=== PATIENT | female | born 1980 | race Two or more races ===

== ENCOUNTER 2018-10-24 11:07 | Inpatient (IN) | payer OTHER ==
[2018-10-24 11:40] VITALS: BMI 24.3
--- NOTE | 2018-10-24 13:53 | HP ---
CIWA Score - Admission Criteria OASAS Guidelines: Admission for Medically Managed Detox: Requires at least one of the followin. CIWA greater than 12 2. Seizures within the past 24 hours 3. Delirium tremens within the past 24 hours 4. Hallucinations within the past 24 hours 5. Acute intervention needed for co occurring medical disorder 6. Acute intervention needed for co occurring psychiatric disorder 7. Severe withdrawal that cannot be handled at a lower level of care (continued vomiting, continued diarrhea, abnormal vital signs) requiring intravenous medication and/or fluids 8. Admission ROS S - HPI Chief Complaint: I am here for rehab from cocaine Allergies/Adverse Reactions: Allergies Allergy/AdvReac Type Severity Reaction Status Date / Time No Known Allergies Allergy Verified 10/24/18 12:17 History of Present Illness: this 38 years old female with cocaine dependence,alcohol abused,seeking rehab, never been in treatment before,mmtp 40 mgs/day,last medicated today nicotine dependence 1 pack/day, weight loss anemia no med major depression,ptsd,anxiety,non compliance,last medication 6 months ago varicose vein both legs Exam Limitations: No Limitations - Ebola screening Have you traveled outside of the country in the last 21 days: No Have you had contact with anyone from an Ebola affected area: No Have you been sick,other than usual withdrawal symptoms: No - Review of Systems Constitutional: No Symptoms Reported, Malaise, Changes in sleep, Unintentional Wgt. Loss EENT: reports: No Symptoms Reported Respiratory: reports: No Symptoms reported Cardiac: reports: No Symptoms Reported GI: reports: Nausea Musculoskeletal: reports: Muscle Pain Integumentary: reports: No Symptoms Reported Neuro: reports: No Symptoms reported Endocrine: reports: No Symptoms Reported Hematology: reports: Anemia Psychiatric: reports: No Sypmtoms Reported, Judgement Intact, Mood/Affect Appropiate, Orientated x3, Depressed, other (insomnia,anxiety,ptsd) Other Systems: Reviewed and Negative Patient History - Patient Medical History Hx Anemia: No Hx Asthma: No Hx Chronic Obstructive Pulmonary Disease (COPD): No Hx Cancer: No Hx Cardiac Disorders: No Hx Congestive Heart Failure: No Hx Hypertension: No Hx Hypercholesterolemia: No Hx Pacemaker: No HX Cerebrovascular Accident: No Hx Seizures: No Hx Dementia: No Hx Diabetes: No Hx Gastrointestinal Disorders: No Hx Liver Disease: No Hx Genitourinary Disorders: No Hx Sexually Transmitted Disorders: No Hx Renal Disease (ESRD): No Hx Thyroid Disease: No Hx Human Immunodeficiency Virus (HIV): No (last 05/01 negative) Hx Hepatitis C: No Hx Depression: Yes (anxiety,insomnia) Hx Suicide Attempt: Yes (overdose at age of 16) Hx Bipolar Disorder: No Hx Schizophrenia: No Other Medical History: no suicidal,no homicidal,varicose veins both legs - Patient Surgical History Past Surgical History: Yes Other Surgical History: 1 C- section 2006, fibroids removal 11/2017 - PPD History Previous Implant?: Yes Documented Results: Negative w/o proof Implanted On Prior [facility] Admission?: No PPD to be Administered?: Yes - Reproductive History Patient is a Female of Child Bearing Age (11 -55 yrs old): Yes Last Menstrual Period: 09/25/18 Patient : No - Smoking Cessation Smoking history: Current every day smoker Have you smoked in the past 12 months: Yes Aproximately how many cigarettes per day: 20 Hx Chewing Tobacco Use: No Initiated information on smoking cessation: Yes 'Breaking Loose' booklet given: 10/24/18 - Substance & Tx. History Hx Alcohol Use: Yes Hx Substance Use: Yes Substance Use Type: Alcohol, Cocaine Hx Substance Use Treatment: No - Substances Abused Cocaine Route: Smoking Frequency: Daily Amount used: $100-$200 Age of first use: 16 Date of Last Use: 10/24/18 Alcohol Route: Oral Frequency: 1-2 times per week Amount used: 2 of 24 ozs of beer Age of first use: 16 Date of Last Use: 10/24/18 Family Disease History - Family Disease History Family History: Denies Admission Physical Exam S - Vital Signs Vital Signs: Vital Signs - 24 hr 10/24/18 11:38 Temperature 98.8 F Pulse Rate 97 H Respiratory 18 Rate Blood Pressure 147/83 - Physical General Appearance: Yes: Within Normal Limits HEENTM: Yes: Normal ENT Inspection, SHUKRI, Pharynx Normal Respiratory: Yes: Within Normal Limits, Lungs Clear, Normal Breath Sounds Neck: Yes: Within Normal Limits, Supple, Trachea in good position Breast: Yes: Breast Exam Deferred Cardiology: Yes: Within Normal Limits, Regular Rhythm, Regular Rate, S1, S2 Abdominal: Yes: Within Normal Limits, Normal Bowel Sounds, Non Tender, Flat, Soft, Surgical Scar Genitourinary: Yes: Within Normal Limits Back: Yes: Within Normal Limits Musculoskeletal: Yes: Within Normal Limits Extremities: Yes: Within Normal Limits, Other (varicose veins both legs) 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, Alert, Motor Strength 5/5 Integumentary: Yes: Within Normal Limits Lymphatic: Yes: Within Normal Limits - Diagnostic (1) Cocaine dependence Current Visit: Yes Status: Acute (2) Alcohol abuse Current Visit: Yes Status: Acute (3) Nicotine dependence Current Visit: Yes Status: Acute (4) Weight loss Current Visit: Yes Status: Acute (5) Insomnia secondary to depression with anxiety Current Visit: Yes Status: Acute (6) PTSD (post-traumatic stress disorder) Current Visit: Yes Status: Acute (7) History of drug overdose Current Visit: Yes Status: Acute Cleared for Admission [facility] - Detox or Rehab Claeared for Rehab Admission: Yes [facility] Breath Alcohol Content Breath Alcohol Content: 0.004 Urine Pregancy Test - Result Urine Test Results: Negative - NO Line Present Urine Drug Screen - Results Urine Drug Screen Results: MISHA-Cocaine, MTD-Methadone Inpatient Rehab Admission - Rehab Decision to Admit Inpatient rehab admission?: Yes - Initial Determination Are CD services needed?: Yes Free of communicable disease: Yes Not in need of hospitalization: Yes - Rehab Admission Criteria Previous failed treatment: Yes Poor recovery environment: Yes Comorbidities: Yes Lacks judgement: No Patient is meeting Inpatient Rehab admission criteria:: Yes
[2018-10-24] MEDS ORDERED: MAGNESIUM HYDROX 2400MG/30ML ORAL SUSPENSION 30 ML CUP PO PRN (14:12)
[2018-10-24] MEDS ORDERED: guaiFENesin 200 MG/10 ML 10 ML UNIT-DOSE CUPS PO PRN (14:12)
[2018-10-24] MEDS ORDERED: LOPERAMIDE HCL 2 MG CAPSULE PO PRN (14:12)
[2018-10-24] MEDS ORDERED: MENTHOL/PHENOL 1 EACH UD MM PRN (14:12)
[2018-10-24] MEDS ORDERED: P-EPHED 60MG/TRIPROLIDI 2.5MG TABLET PO PRN (14:12)
[2018-10-24] MEDS ORDERED: ACETAMINOPHEN 325 MG TABLET (FP) PO PRN (14:12)
[2018-10-24] MEDS ORDERED: MAGNESIUM CITRATE 300 ML BOTTLE PO PRN (14:12)
[2018-10-24] MEDS ORDERED: MAG HYDROX/AL HYDROX/SIMETH 30 ML UNIT-DOSE CUP PO PRN (14:12)
[2018-10-24] MEDS: NICOTINE 21 MG/24 HOURS TOPICAL PATCH TD SCH (18:38)
[2018-10-24] MEDS ORDERED: PT OWN MED DRAWER 7, Y5N ONE (21:06)
[2018-10-24] MEDS: THIAMINE HCL 100 MG TABLET (FP) PO SCH (21:38)
[2018-10-24] MEDS: MELATONIN 5 MG TABLETS PO PRN (21:39)
[2018-10-24 23:50] LABS: URINE APPEARANCE CLEAR; URINE BILIRUBIN NEGATIVE (<2.0 mg/dL); URINE COLOR STRAW; URINE GLUCOSE (UA) NEGATIVE (NEGATIVE); URINE KETONE NEGATIVE (NEGATIVE); URINE LEUK ESTERASE NEGATIVE (NEGATIVE); URINE NITRITE NEGATIVE (NEGATIVE); URINE PROTEIN NEGATIVE (NEGATIVE); URINE UROBILINOGEN NEGATIVE mg/dL (0.2-1.0)
[2018-10-25] MEDS: METHADONE HCL 40 MG DISPERSABLE TABLET PO SCH (07:49)
[2018-10-25 10:19] LABS: HEMATOCRIT 32.9 % (32.4-45.2); HEMOGLOBIN 10.5 GM/dL (10.7-15.3); MCH 24.4 pg (25.7-33.7); MCHC 31.9 g/dl (32.0-36.0); MEAN CELL VOLUME 76.5 fl (80-96); MEAN PLT VOLUME 8.6 fl (7.5-11.1); PLATELET COUNT 319 K/MM3 (134-434); RDW 19.5 % (11.6-15.6); WHITE BLOOD COUNT 6.5 K/mm3 (4.0-10.0)
[2018-10-25] MEDS: NICOTINE 21 MG/24 HOURS TOPICAL PATCH TD SCH (10:26)
[2018-10-25] MEDS: PRENATAL VITAMINS W/ FOLIC ACID TABLET (FP) PO SCH (10:26)
[2018-10-25] MEDS: NICOTINE POLACRILEX 2 MG GUM BUC PRN (10:27)
[2018-10-25 10:35] LABS: ALBUMIN 3.3 g/dl (3.4-5.0); ALK PHOS 97 U/L (45-117); ANION GAP 5 MMOL/L (8-16); BILIRUBIN,TOTAL 0.3 mg/dL (0.2-1); BLOOD UREA NITROGEN 14 mg/dL (7-18); CALCIUM 8.4 mg/dL (8.5-10.1); CHLORIDE 104 mmol/L (98-107); CO2 28 mmol/L (21-32); GLUCOSE,RANDOM 87 mg/dL (74-106); POTASSIUM 4.3 mmol/L (3.5-5.1); SGOT/AST 15 U/L (15-37); SGPT/ALT 16 U/L (13-61); SODIUM 137 mmol/L (136-145); TOT PROT 7.4 g/dl (6.4-8.2)
[2018-10-25 10:56] LABS: SICKLE CELL SCREEN NEGATIVE (NEGATIVE)
--- NOTE | 2018-10-25 11:58 | PN ---
[facility] Progress Note (SOAP) Subjective: patient reported to nurse that she felt as though she was going to pass out. Client reported feeling this way 20 years ago at age 18, but no other episodes since then. Reports she has not eaten well in 2 days and fluid intake has been low. States that once she had 3 cups of water, she felt better. Was found sitting on bed and reports that she no longer feels as though she will pass out. Objective: 10/25/18 11:53 Vital Signs (72 hours) 10/24/18 10/24/18 10/25/18 11:38 15:33 00:30 Temperature 98.8 F 97.7 F Pulse Rate 97 H 82 Respiratory 18 18 18 Rate Blood Pressure 147/83 113/75 10/25/18 10/25/18 10/25/18 03:30 07:57 11:35 Temperature 98.6 F 97.8 F Pulse Rate 81 80 Respiratory 18 18 20 Rate Blood Pressure 149/82 139/87 10/25/18 11:54 Vital signs take at the time of complaint: 139/87, HR-80, RR-20, O2 saturation: 100%, Blood glucose 107 10/25/18 11:57 neurologically intact, PERRLA, strength equal bilaterally, A+O x 3. Assessment: vertigo 10/25/18 11:57 10/25/18 11:58 Plan: Advised client to change position slowly, increase hydration. Patient recovered. Advised to notify RN if any further incidence of dizziness, Continue to monitor.
[2018-10-25] MEDS ORDERED: TUBERCULIN PPD 5 TU/0.1ML VIAL ID ONE (19:23)
[2018-10-25] MEDS: MELATONIN 5 MG TABLETS PO PRN (21:30)
[2018-10-25] MEDS: THIAMINE HCL 100 MG TABLET (FP) PO SCH (21:30)
[2018-10-25] MEDS ORDERED: PT OWN MED DRAWER 7, Y5N ONE (22:33)
[2018-10-26] MEDS: METHADONE HCL 40 MG DISPERSABLE TABLET PO SCH (06:54)
[2018-10-26] MEDS: PRENATAL VITAMINS W/ FOLIC ACID TABLET (FP) PO SCH (10:03)
[2018-10-26] MEDS: NICOTINE 21 MG/24 HOURS TOPICAL PATCH TD SCH (10:04)
[2018-10-26] MEDS: NICOTINE POLACRILEX 2 MG GUM BUC PRN ×2 (10:05→21:18)
[2018-10-26] MEDS: MELATONIN 5 MG TABLETS PO PRN (21:17)
[2018-10-26] MEDS: THIAMINE HCL 100 MG TABLET (FP) PO SCH (21:17)
[2018-10-27] MEDS: METHADONE HCL 40 MG DISPERSABLE TABLET PO SCH (06:35)
[2018-10-27] MEDS: IBUPROFEN 400 MG TABLET (FP) PO PRN (06:36)
[2018-10-27] MEDS: PRENATAL VITAMINS W/ FOLIC ACID TABLET (FP) PO SCH (10:07)
[2018-10-27] MEDS: NICOTINE 21 MG/24 HOURS TOPICAL PATCH TD SCH (10:07)
[2018-10-27] MEDS: NICOTINE POLACRILEX 2 MG GUM BUC PRN ×2 (10:08→16:29)
[2018-10-27] MEDS: THIAMINE HCL 100 MG TABLET (FP) PO SCH (21:22)
[2018-10-27] MEDS: MELATONIN 5 MG TABLETS PO PRN (21:22)
[2018-10-28] MEDS: METHADONE HCL 40 MG DISPERSABLE TABLET PO SCH (06:42)
[2018-10-28] MEDS: PRENATAL VITAMINS W/ FOLIC ACID TABLET (FP) PO SCH (10:47)
[2018-10-28] MEDS: NICOTINE 21 MG/24 HOURS TOPICAL PATCH TD SCH (10:47)
[2018-10-28] MEDS: NICOTINE POLACRILEX 2 MG GUM BUC PRN ×2 (10:48→18:26)
[2018-10-28] MEDS: THIAMINE HCL 100 MG TABLET (FP) PO SCH (21:02)
[2018-10-28] MEDS: MELATONIN 5 MG TABLETS PO PRN (21:03)
[2018-10-29] MEDS: METHADONE HCL 40 MG DISPERSABLE TABLET PO SCH (06:47)
[2018-10-29] MEDS: NICOTINE 21 MG/24 HOURS TOPICAL PATCH TD SCH (10:01)
[2018-10-29] MEDS: PRENATAL VITAMINS W/ FOLIC ACID TABLET (FP) PO SCH (10:01)
[2018-10-29] MEDS: NICOTINE POLACRILEX 2 MG GUM BUC PRN (10:02)
[2018-10-29] MEDS: MELATONIN 5 MG TABLETS PO PRN (21:08)
[2018-10-29] MEDS: THIAMINE HCL 100 MG TABLET (FP) PO SCH (21:08)
[2018-10-30] MEDS: METHADONE HCL 40 MG DISPERSABLE TABLET PO SCH (06:27)
[2018-10-30] MEDS: PRENATAL VITAMINS W/ FOLIC ACID TABLET (FP) PO SCH (09:59)
[2018-10-30] MEDS: NICOTINE 21 MG/24 HOURS TOPICAL PATCH TD SCH (09:59)
[2018-10-30] MEDS: NICOTINE POLACRILEX 2 MG GUM BUC PRN (10:00)
[2018-10-30] MEDS: THIAMINE HCL 100 MG TABLET (FP) PO SCH (21:28)
[2018-10-30] MEDS: MELATONIN 5 MG TABLETS PO PRN (21:28)
[2018-10-31] MEDS: METHADONE HCL 40 MG DISPERSABLE TABLET PO SCH (06:49)
[2018-10-31] MEDS: NICOTINE 21 MG/24 HOURS TOPICAL PATCH TD SCH (09:46)
[2018-10-31] MEDS: PRENATAL VITAMINS W/ FOLIC ACID TABLET (FP) PO SCH (09:46)
[2018-10-31] MEDS: NICOTINE POLACRILEX 2 MG GUM BUC PRN (09:47)
[2018-10-31] MEDS: THIAMINE HCL 100 MG TABLET (FP) PO SCH (21:48)
[2018-10-31] MEDS: MELATONIN 5 MG TABLETS PO PRN (21:50)
[2018-11-01] MEDS: METHADONE HCL 40 MG DISPERSABLE TABLET PO SCH (06:20)
[2018-11-01] MEDS: hydrOXYzine PAMOATE 25 MG CAPSULE (FP) PO PRN ×2 (09:49→21:24)
[2018-11-01] MEDS: IBUPROFEN 400 MG TABLET (FP) PO PRN (09:49)
[2018-11-01] MEDS: PRENATAL VITAMINS W/ FOLIC ACID TABLET (FP) PO SCH (09:49)
[2018-11-01] MEDS: NICOTINE 21 MG/24 HOURS TOPICAL PATCH TD SCH (09:49)
[2018-11-01] MEDS: NICOTINE POLACRILEX 2 MG GUM BUC PRN (09:50)
[2018-11-01] MEDS: THIAMINE HCL 100 MG TABLET (FP) PO SCH (21:24)
[2018-11-01] MEDS: MELATONIN 5 MG TABLETS PO PRN (21:24)
[2018-11-02] MEDS: METHADONE HCL 40 MG DISPERSABLE TABLET PO SCH (06:35)
[2018-11-02] MEDS: NICOTINE POLACRILEX 2 MG GUM BUC PRN ×3 (06:35→21:34)
[2018-11-02] MEDS: PRENATAL VITAMINS W/ FOLIC ACID TABLET (FP) PO SCH (09:56)
[2018-11-02] MEDS: NICOTINE 21 MG/24 HOURS TOPICAL PATCH TD SCH (09:56)
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
[2018-11-02] MEDS: PARoxetine HCL 20 MG TABLET PO SCH (13:13)
[2018-11-02] MEDS: THIAMINE HCL 100 MG TABLET (FP) PO SCH (21:32)
[2018-11-02] MEDS: hydrOXYzine PAMOATE 25 MG CAPSULE (FP) PO PRN (21:32)
[2018-11-02] MEDS: traZODone HCL 100 MG TABLET (FP) PO SCH (21:33)
[2018-11-03] MEDS: METHADONE HCL 40 MG DISPERSABLE TABLET PO SCH (07:00)
[2018-11-03] MEDS: NICOTINE 21 MG/24 HOURS TOPICAL PATCH TD SCH (10:16)
[2018-11-03] MEDS: PRENATAL VITAMINS W/ FOLIC ACID TABLET (FP) PO SCH (10:16)
[2018-11-03] MEDS: PARoxetine HCL 20 MG TABLET PO SCH (10:16)
[2018-11-03] MEDS: MELATONIN 5 MG TABLETS PO PRN (21:11)
[2018-11-03] MEDS: THIAMINE HCL 100 MG TABLET (FP) PO SCH (21:11)
[2018-11-03] MEDS: traZODone HCL 100 MG TABLET (FP) PO SCH (21:11)
[2018-11-04] MEDS ORDERED: PT OWN MED DRAWER 7, Y5N ONE (03:18)
[2018-11-04] MEDS: METHADONE HCL 40 MG DISPERSABLE TABLET PO SCH (06:25)
[2018-11-04] MEDS: NICOTINE 21 MG/24 HOURS TOPICAL PATCH TD SCH (10:00)
[2018-11-04] MEDS: PARoxetine HCL 20 MG TABLET PO SCH (10:00)
[2018-11-04] MEDS: PRENATAL VITAMINS W/ FOLIC ACID TABLET (FP) PO SCH (10:00)
[2018-11-04] MEDS: NICOTINE POLACRILEX 2 MG GUM BUC PRN ×3 (10:01→21:29)
[2018-11-04] MEDS: THIAMINE HCL 100 MG TABLET (FP) PO SCH (21:29)
[2018-11-04] MEDS: MELATONIN 5 MG TABLETS PO PRN (21:29)
[2018-11-04] MEDS: traZODone HCL 100 MG TABLET (FP) PO SCH (21:45)
[2018-11-05] MEDS: METHADONE HCL 40 MG DISPERSABLE TABLET PO SCH (06:42)
[2018-11-05] MEDS: NICOTINE POLACRILEX 2 MG GUM BUC PRN ×3 (06:43→21:07)
[2018-11-05] MEDS: NICOTINE 21 MG/24 HOURS TOPICAL PATCH TD SCH (09:43)
[2018-11-05] MEDS: PRENATAL VITAMINS W/ FOLIC ACID TABLET (FP) PO SCH (09:43)
[2018-11-05] MEDS: PARoxetine HCL 20 MG TABLET PO SCH (09:43)
[2018-11-05] MEDS: THIAMINE HCL 100 MG TABLET (FP) PO SCH (21:07)
[2018-11-05] MEDS: traZODone HCL 100 MG TABLET (FP) PO SCH (21:07)
[2018-11-05] MEDS: MELATONIN 5 MG TABLETS PO PRN (21:07)
[2018-11-06] MEDS: METHADONE HCL 40 MG DISPERSABLE TABLET PO SCH (06:36)
[2018-11-06] MEDS: NICOTINE POLACRILEX 2 MG GUM BUC PRN ×2 (06:38→10:04)
[2018-11-06] MEDS: NICOTINE 21 MG/24 HOURS TOPICAL PATCH TD SCH (10:03)
[2018-11-06] MEDS: PARoxetine HCL 20 MG TABLET PO SCH (10:04)
[2018-11-06] MEDS: PRENATAL VITAMINS W/ FOLIC ACID TABLET (FP) PO SCH (10:04)
--- NOTE | 2018-11-06 17:05 | PN ---
[facility] Progress Note Note: Patient is scheduled for discharged tomorrow. Scripts for 30 days supply of medications(Paxil, Trazadone) will be electronically transferred to [facility] at [address] [place] [address] [phone]
[2018-11-06] MEDS: THIAMINE HCL 100 MG TABLET (FP) PO SCH (21:25)
[2018-11-06] MEDS: traZODone HCL 100 MG TABLET (FP) PO SCH (21:26)
[2018-11-06] MEDS: MELATONIN 5 MG TABLETS PO PRN (21:26)
[2018-11-07] MEDS: METHADONE HCL 40 MG DISPERSABLE TABLET PO SCH (06:38)
[2018-11-07] MEDS: IBUPROFEN 400 MG TABLET (FP) PO PRN (06:39)
[2018-11-07] MEDS: NICOTINE POLACRILEX 2 MG GUM BUC PRN ×2 (06:40→09:34)
[2018-11-07 07:07] VITALS: BP 125/84; PULSE 73; TEMP 97.8
[2018-11-07] MEDS: NICOTINE 21 MG/24 HOURS TOPICAL PATCH TD SCH (09:34)
[2018-11-07] MEDS: PRENATAL VITAMINS W/ FOLIC ACID TABLET (FP) PO SCH (09:34)
[2018-11-07] MEDS: PARoxetine HCL 20 MG TABLET PO SCH (09:34)
--- NOTE | 2018-11-07 09:34 | PN ---
[facility] Progress Note Note: PT COMPLETED REHAB AND DISCHARGED TODAY. PT MET WITH HER COUNSELOR AND HAS BEEN REFERRED TO AFTERCARE AT [facility] ON [address] [place] [address] WELL TO [facility] ON [address] [place], [place]. Home Medications Medication Instructions Recorded Paroxetine HCl [Paxil -] 20 mg PO DAILY #30 tablet 11/06/18 traZODone HCL [Desyrel -] 100 mg PO HS #30 tablet 11/06/18 Vital Signs (72 hours) 11/05/18 11/05/18 11/05/18 00:30 03:30 07:00 Temperature 97.8 F Pulse Rate 82 Respiratory 18 18 18 Rate Blood Pressure 118/74 11/06/18 11/06/18 11/06/18 00:30 03:30 07:11 Temperature 97.2 F L Pulse Rate 76 Respiratory 17 18 18 Rate Blood Pressure 109/75 11/07/18 11/07/18 11/07/18 00:30 03:30 07:07 Temperature 97.8 F Pulse Rate 73 Respiratory 18 18 18 Rate Blood Pressure 125/84 Laboratory Tests 10/24/18 10/25/18 10/25/18 23:17 06:00 06:00 WBC 6.5 RBC 4.30 Hgb 10.5 L Hct 32.9 MCV 76.5 L MCH 24.4 L MCHC 31.9 L RDW 19.5 H Plt Count 319 MPV 8.6 Sickle Cell Screen Negative Sodium Potassium Chloride Carbon Dioxide Anion Gap BUN Creatinine Creat Clearance w eGFR POC Glucometer Random Glucose Calcium Total Bilirubin AST ALT Alkaline Phosphatase Total Protein Albumin Urine Color Straw Urine Appearance Clear Urine pH 6.0 Ur Specific [place] 1.008 L Urine Protein Negative Urine Glucose (UA) Negative Urine Ketones Negative Urine Blood Negative Urine Nitrite Negative Urine Bilirubin Negative Urine Urobilinogen Negative Ur Leukocyte Esterase Negative RPR Titer HIV 1&2 Antibody Screen Negative HIV P24 Antigen Negative 10/25/18 10/25/18 10/25/18 06:00 06:00 11:34 WBC RBC Hgb Hct MCV MCH MCHC RDW Plt Count MPV Sickle Cell Screen Sodium 137 Potassium 4.3 Chloride 104 Carbon Dioxide 28 Anion Gap 5 L BUN 14 Creatinine 1.0 Creat Clearance w eGFR > 60 POC Glucometer 107 Random Glucose 87 Calcium 8.4 L Total Bilirubin 0.3 AST 15 ALT 16 Alkaline Phosphatase 97 Total Protein 7.4 Albumin 3.3 L Urine Color Urine Appearance Urine pH Ur Specific [place] Urine Protein Urine Glucose (UA) Urine Ketones Urine Blood Urine Nitrite Urine Bilirubin Urine Urobilinogen Ur Leukocyte Esterase RPR Titer Nonreactive HIV 1&2 Antibody Screen HIV P24 Antigen NAD MEDICALLY STABLE PLAN:D/C PT TODAY FOLLOW UP WITH CD AFTERCARE RECOMMENDATION/ MEDICAL MANAGEMENT INDICATED ABOVE. Current Active Problems Alcohol abuse (Acute) Anemia (Acute) Cocaine dependence (Acute) History of drug overdose (Acute) Insomnia secondary to depression with anxiety (Acute) Substance-induced anxiety disorder (Acute) Substance-induced sleep disorder (Acute) Weight loss (Acute) MDD (major depressive disorder) (Chronic) Nicotine dependence (Chronic) PTSD (post-traumatic stress disorder) (Chronic) Varicose vein of leg (Chronic)
== END 2018-11-07 10:00 | disposition home or self-care (01) | DRG 772 ==
LOC: YASAS 11:07 → Y3E 12:31
PROVIDERS: ADMIT Neuromusculoskeletal Medicine & OMM; ATTEND Neuromusculoskeletal Medicine & OMM
PROC: HZ42ZZZ Group Counseling for Substance Abuse Treatment, Cognitive-Behavioral (ICD-10-PCS; principal; 2018-10-24)
DX: F14.20 Cocaine dependence, uncomplicated (principal); F10.10 Alcohol abuse, uncomplicated; F17.210 Nicotine dependence, cigarettes, uncomplicated; F43.10 Post-traumatic stress disorder, unspecified; F32.9 Major depressive disorder, single episode, unspecified; F51.05 Insomnia due to other mental disorder; F19.280 Other psychoactive substance dependence with psychoactive substance-induced anxiety disorder; F19.282 Other psychoactive substance dependence with psychoactive substance-induced sleep disorder; I83.93 Asymptomatic varicose veins of bilateral lower extremities; Z91.5 Personal history of self-harm
CPT/HCPCS: 36415; 80053; 81003; 82962; 85027; 85660; 86593; 87389

== ENCOUNTER 2018-12-28 17:57 | Inpatient (IN) | payer OTHER | END 2019-01-17 09:50 | disposition home or self-care (01) | LOC: YASAS 17:57 → Y3E 23:34 ==

== ENCOUNTER 2019-04-18 11:33 | Inpatient (IN) | payer OTHER ==
[2019-04-18 13:00] VITALS: BMI 23.1
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
[2019-04-18] MEDS ORDERED: MAG HYDROX/AL HYDROX/SIMETH 30 ML UNIT-DOSE CUP PO PRN (14:03)
[2019-04-18] MEDS ORDERED: hydrOXYzine PAMOATE 25 MG CAPSULE (FP) PO PRN (14:03)
[2019-04-18] MEDS ORDERED: IBUPROFEN 400 MG TABLET (FP) PO PRN (14:03)
[2019-04-18] MEDS ORDERED: MAGNESIUM CITRATE 300 ML BOTTLE PO PRN (14:03)
[2019-04-18] MEDS ORDERED: MELATONIN 5 MG TABLETS PO PRN (14:03)
[2019-04-18] MEDS ORDERED: MENTHOL/PHENOL 1 EACH UD MM PRN (14:03)
[2019-04-18] MEDS ORDERED: ACETAMINOPHEN 325 MG TABLET (FP) PO PRN ×2 (14:03)
[2019-04-18] MEDS ORDERED: BISMUTH SUBSALICYLATE 262 MG/15 ML BTL PO PRN (14:03)
[2019-04-18] MEDS ORDERED: METHOCARBAMOL 500 MG TABLET PO PRN (14:03)
[2019-04-18] MEDS ORDERED: MAGNESIUM HYDROX 2400MG/30ML ORAL SUSPENSION 30 ML CUP PO PRN (14:03)
[2019-04-18] MEDS ORDERED: chlordiazePOXIDE HCL 10 MG CAPSULE PO PRN (14:03)
[2019-04-18] MEDS: chlordiazePOXIDE HCL 25 MG CAPSULE PO SCH ×2 (15:30→21:47)
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
[2019-04-18] MEDS: NICOTINE POLACRILEX 2 MG GUM BUC PRN ×2 (18:35→21:51)
[2019-04-18] MEDS: THIAMINE HCL 100 MG TABLET (FP) PO SCH (21:46)
[2019-04-19] MEDS ORDERED: METHADONE HCL 10 MG TABLET PO SCH (06:00)
[2019-04-19] MEDS: chlordiazePOXIDE HCL 25 MG CAPSULE PO SCH ×3 (06:16→22:20)
[2019-04-19] MEDS ORDERED: METHADONE HCL 10 MG TABLET PO ONE (08:58)
[2019-04-19] MEDS ORDERED: METHADONE 40 MG, METHADONE 10 MG PO ONE (10:00)
[2019-04-19] MEDS ORDERED: METHADONE HCL 10 MG TABLET ONE (10:30)
[2019-04-19] MEDS ORDERED: METHADONE HCL 40 MG DISPERSABLE TABLET ONE (10:30)
[2019-04-19] MEDS: NICOTINE 14 MG/24 HOURS TOPICAL PATCH TD SCH (10:32)
[2019-04-19] MEDS: PRENATAL VITAMINS W/ FOLIC ACID TABLET (FP) PO SCH (10:32)
[2019-04-19 11:55] LABS: HEMOGLOBIN 11.9 GM/dL (10.7-15.3); MCH 27.4 pg (25.7-33.7); MCHC 32.2 g/dl (32.0-36.0); MEAN CELL VOLUME 85.1 fl (80-96); MEAN PLT VOLUME 8.8 fl (7.5-11.1); PLATELET COUNT 258 K/MM3 (134-434); RBC 4.35 M/mm3 (3.60-5.2); RDW 16.1 % (11.6-15.6); WHITE BLOOD COUNT 4.7 K/mm3 (4.0-10.0)
[2019-04-19 12:10] LABS: BILIRUBIN,TOTAL 0.6 mg/dL (0.2-1); BLOOD UREA NITROGEN 10.9 mg/dL (7-18); CALCIUM 8.8 mg/dL (8.5-10.1); CREATININE 0.7 mg/dL (0.55-1.3); POTASSIUM 4.1 mmol/L (3.5-5.1); TOT PROT 6.6 g/dl (6.4-8.2)
--- NOTE | 2019-04-19 13:56 | PN ---
S CIWA - CIWA Score Nausea/Vomitin-No Nausea/No Vomiting Muscle Tremors: 3 Anxiety: 3 Agitation: 3 Paroxysmal Sweats: 3 Orientation: 0-Oriented Tacttile Disturbances: 0-None Auditory Disturbances: 0-None Visual Disturbances: 0-None Headache: 0-None Present CIWA-Ar Total Score: 12 S Progress Note (SOAP) Subjective: sweats shakes interrupted sleep body aches Objective: 04/19/19 13:57 Vital Signs Temperature 97.7 F 04/19/19 09:39 Pulse Rate 64 04/19/19 09:39 Respiratory Rate 18 04/19/19 09:39 Blood Pressure 146/87 04/19/19 09:39 O2 Sat by Pulse Oximetry (%) Laboratory Tests 04/18/19 04/19/19 04/19/19 13:25 08:30 08:30 WBC 4.7 RBC 4.35 Hgb 11.9 Hct 37.0 MCV 85.1 MCH 27.4 MCHC 32.2 RDW 16.1 H Plt Count 258 MPV 8.8 Sodium 141 Potassium 4.1 Chloride 104 Carbon Dioxide 28 Anion Gap 9 BUN 10.9 Creatinine 0.7 Est GFR (CKD-EPI)AfAm 126.49 Est GFR (CKD-EPI)NonAf 109.14 Random Glucose 85 Calcium 8.8 Total Bilirubin 0.6 AST 29 ALT 25 Alkaline Phosphatase 100 Total Protein 6.6 Albumin 3.0 L POC Urine HCG, Qual Negative RPR Titer 04/19/19 08:30 WBC RBC Hgb Hct MCV MCH MCHC RDW Plt Count MPV Sodium Potassium Chloride Carbon Dioxide Anion Gap BUN Creatinine Est GFR (CKD-EPI)AfAm Est GFR (CKD-EPI)NonAf Random Glucose Calcium Total Bilirubin AST ALT Alkaline Phosphatase Total Protein Albumin POC Urine HCG, Qual RPR Titer Nonreactive labs noted aaox3 ambulating no acute distress Assessment: 04/19/19 14:09 withdrawal sx Plan: continue detox increase fluids
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
[2019-04-19] MEDS: THIAMINE HCL 100 MG TABLET (FP) PO SCH (22:20)
[2019-04-19] MEDS: MELATONIN 5 MG TABLETS PO PRN (22:21)
[2019-04-20] MEDS ORDERED: METHADONE HCL 40 MG DISPERSABLE TABLET ONE (04:35)
[2019-04-20] MEDS ORDERED: METHADONE HCL 10 MG TABLET ONE (04:35)
[2019-04-20] MEDS: METHADONE 40 MG, METHADONE 10 MG PO SCH (05:35)
[2019-04-20] MEDS: chlordiazePOXIDE 5 MG CAPSULE PO SCH ×3 (05:35→22:44)
[2019-04-20] MEDS ORDERED: METHADONE HCL 40 MG DISPERSABLE TABLET PO SCH (06:00)
[2019-04-20] MEDS: NICOTINE 14 MG/24 HOURS TOPICAL PATCH TD SCH (10:14)
[2019-04-20] MEDS: PRENATAL VITAMINS W/ FOLIC ACID TABLET (FP) PO SCH (10:14)
--- NOTE | 2019-04-20 12:38 | PN ---
S CIWA - CIWA Score Nausea/Vomitin-No Nausea/No Vomiting Muscle Tremors: None Anxiety: 3 Agitation: 2 Paroxysmal Sweats: 3 Orientation: 0-Oriented Tacttile Disturbances: 0-None Auditory Disturbances: 0-None Visual Disturbances: 0-None Headache: 2-Mild CIWA-Ar Total Score: 10 S Progress Note (SOAP) Subjective: c/o headache, anxiety, and sweats. Objective: 04/20/19 12:37 Vital Signs 04/20/19 04/20/19 06:00 09:20 Temperature 97.7 F 97.7 F Pulse Rate 65 75 Respiratory 18 18 Rate Blood Pressure 106/66 122/83 Lab Results WBC 4.7 K/mm3 (4.0-10.0) 04/19/19 08:30 RBC 4.35 M/mm3 (3.60-5.2) 04/19/19 08:30 Hgb 11.9 GM/dL (10.7-15.3) 04/19/19 08:30 Hct 37.0 % (32.4-45.2) 04/19/19 08:30 MCV 85.1 fl (80-96) 04/19/19 08:30 MCHC 32.2 g/dl (32.0-36.0) 04/19/19 08:30 RDW 16.1 % (11.6-15.6) H 04/19/19 08:30 Plt Count 258 K/MM3 (134-434) 04/19/19 08:30 Sodium 141 mmol/L (136-145) 04/19/19 08:30 Potassium 4.1 mmol/L (3.5-5.1) 04/19/19 08:30 Chloride 104 mmol/L (98-107) 04/19/19 08:30 Carbon Dioxide 28 mmol/L (21-32) 04/19/19 08:30 Anion Gap 9 MMOL/L (8-16) 04/19/19 08:30 BUN 10.9 mg/dL (7-18) 04/19/19 08:30 Creatinine 0.7 mg/dL (0.55-1.3) 04/19/19 08:30 Random Glucose 85 mg/dL (74-106) 04/19/19 08:30 Calcium 8.8 mg/dL (8.5-10.1) 04/19/19 08:30 Labs noted. Assessment: 04/20/19 12:38 AOX3, in no acute respiratory distress. Full ROM, ambulating in the unit. Withdrawal symptoms. Plan: continue detox.
[2019-04-20] MEDS: THIAMINE HCL 100 MG TABLET (FP) PO SCH (22:44)
[2019-04-20] MEDS: MELATONIN 5 MG TABLETS PO PRN (22:44)
[2019-04-20] MEDS: NICOTINE POLACRILEX 2 MG GUM BUC PRN (22:46)
[2019-04-21] MEDS ORDERED: chlordiazePOXIDE HCL 10 MG CAPSULE PO PRN
[2019-04-21] MEDS ORDERED: METHADONE HCL 10 MG TABLET ONE (04:52)
[2019-04-21] MEDS ORDERED: METHADONE HCL 40 MG DISPERSABLE TABLET ONE (04:52)
[2019-04-21] MEDS: chlordiazePOXIDE HCL 10 MG CAPSULE PO SCH ×3 (05:31→22:36)
[2019-04-21] MEDS: METHADONE 40 MG, METHADONE 10 MG PO SCH (05:31)
[2019-04-21] MEDS: PRENATAL VITAMINS W/ FOLIC ACID TABLET (FP) PO SCH (10:43)
[2019-04-21] MEDS: NICOTINE 14 MG/24 HOURS TOPICAL PATCH TD SCH (10:43)
--- NOTE | 2019-04-21 17:32 | PN ---
[facility] CIWA - CIWA Score Nausea/Vomitin-No Nausea/No Vomiting Muscle Tremors: None Anxiety: 3 Agitation: 3 Paroxysmal Sweats: 2 Orientation: 0-Oriented Tacttile Disturbances: 0-None Auditory Disturbances: 0-None Visual Disturbances: 0-None Headache: 0-None Present CIWA-Ar Total Score: 8 BHS Progress Note (SOAP) Subjective: Anxious, chills, diarrhea Objective: 04/21/19 17:30 Last Vital Signs Temp Pulse Resp BP Pulse Ox 97.5 F L 77 18 106/60 04/21/19 17:01 04/21/19 17:01 04/21/19 17:01 04/21/19 17:01 Laboratory Tests 04/18/19 04/19/19 04/19/19 13:25 08:30 08:30 WBC RBC Hgb Hct MCV MCH MCHC RDW Plt Count MPV Sodium Potassium Chloride Carbon Dioxide Anion Gap BUN Creatinine Est GFR (CKD-EPI)AfAm Est GFR (CKD-EPI)NonAf Random Glucose Calcium Total Bilirubin AST ALT Alkaline Phosphatase Total Protein Albumin POC Urine HCG, Qual Negative RPR Titer HIV 1&2 Ag/Ab, 4th Gen Non reactive TB (QFT) Incubation TB Test (QFT) Nil 0.07 TB Test (QFT) Mitogen >10.00 TB Test (QFT) Antigen 0.06 TB Test (QFT) Negative TB Positive Criteria 04/19/19 04/19/19 04/19/19 08:30 08:30 08:30 WBC 4.7 RBC 4.35 Hgb 11.9 Hct 37.0 MCV 85.1 MCH 27.4 MCHC 32.2 RDW 16.1 H Plt Count 258 MPV 8.8 Sodium 141 Potassium 4.1 Chloride 104 Carbon Dioxide 28 Anion Gap 9 BUN 10.9 Creatinine 0.7 Est GFR (CKD-EPI)AfAm 126.49 Est GFR (CKD-EPI)NonAf 109.14 Random Glucose 85 Calcium 8.8 Total Bilirubin 0.6 AST 29 ALT 25 Alkaline Phosphatase 100 Total Protein 6.6 Albumin 3.0 L POC Urine HCG, Qual RPR Titer Nonreactive HIV 1&2 Ag/Ab, 4th Gen TB (QFT) Incubation TB Test (QFT) Nil TB Test (QFT) Mitogen TB Test (QFT) Antigen TB Test (QFT) TB Positive Criteria Labs reviewed Assessment: 04/21/19 17:31 Withdrawal sxs Plan: Continue detox Encouraged PO water intake Patient scheduled for discharge tomorrow
[2019-04-21] MEDS: NICOTINE POLACRILEX 2 MG GUM BUC PRN ×2 (17:58→22:38)
[2019-04-21] MEDS: THIAMINE HCL 100 MG TABLET (FP) PO SCH (22:36)
[2019-04-21] MEDS: MELATONIN 5 MG TABLETS PO PRN (22:36)
[2019-04-22] MEDS ORDERED: chlordiazePOXIDE HCL 10 MG CAPSULE PO ONE (05:00)
[2019-04-22] MEDS ORDERED: METHADONE HCL 10 MG TABLET ONE (06:12)
[2019-04-22] MEDS ORDERED: METHADONE HCL 40 MG DISPERSABLE TABLET ONE (06:12)
[2019-04-22] MEDS: METHADONE 40 MG, METHADONE 10 MG PO SCH (06:13)
[2019-04-22 07:17] VITALS: TEMP 98.2
[2019-04-22 09:47] VITALS: BP 113/55; PULSE 81
[2019-04-22] MEDS: NICOTINE 14 MG/24 HOURS TOPICAL PATCH TD SCH (09:49)
[2019-04-22] MEDS: PRENATAL VITAMINS W/ FOLIC ACID TABLET (FP) PO SCH (09:49)
[2019-04-22] MEDS: NICOTINE POLACRILEX 2 MG GUM BUC PRN (09:51)
--- NOTE | 2019-04-22 10:08 | DS ---
[facility] Detox Discharge Summary Admission Date: 04/18/19 Discharge Date: 04/22/19 - History Present History: Alcohol Dependence, Cocaine Dependence, MMTP - Physical Exam Results Vital Signs: Vital Signs Temperature 98.2 F 04/22/19 09:46 Pulse Rate 81 04/22/19 09:46 Respiratory Rate 18 04/22/19 09:46 Blood Pressure 113/55 L 04/22/19 09:46 O2 Sat by Pulse Oximetry (%) Pertinent Admission Physical Exam Findings: pt arrived in withdrawals Laboratory Tests 04/18/19 04/19/19 04/19/19 13:25 08:30 08:30 WBC RBC Hgb Hct MCV MCH MCHC RDW Plt Count MPV Sodium Potassium Chloride Carbon Dioxide Anion Gap BUN Creatinine Est GFR (CKD-EPI)AfAm Est GFR (CKD-EPI)NonAf Random Glucose Calcium Total Bilirubin AST ALT Alkaline Phosphatase Total Protein Albumin POC Urine HCG, Qual Negative RPR Titer HIV 1&2 Ag/Ab, 4th Gen Non reactive TB (QFT) Incubation TB Test (QFT) Nil 0.07 TB Test (QFT) Mitogen >10.00 TB Test (QFT) Antigen 0.06 TB Test (QFT) Negative TB Positive Criteria 04/19/19 04/19/19 04/19/19 08:30 08:30 08:30 WBC 4.7 RBC 4.35 Hgb 11.9 Hct 37.0 MCV 85.1 MCH 27.4 MCHC 32.2 RDW 16.1 H Plt Count 258 MPV 8.8 Sodium 141 Potassium 4.1 Chloride 104 Carbon Dioxide 28 Anion Gap 9 BUN 10.9 Creatinine 0.7 Est GFR (CKD-EPI)AfAm 126.49 Est GFR (CKD-EPI)NonAf 109.14 Random Glucose 85 Calcium 8.8 Total Bilirubin 0.6 AST 29 ALT 25 Alkaline Phosphatase 100 Total Protein 6.6 Albumin 3.0 L POC Urine HCG, Qual RPR Titer Nonreactive HIV 1&2 Ag/Ab, 4th Gen TB (QFT) Incubation TB Test (QFT) Nil TB Test (QFT) Mitogen TB Test (QFT) Antigen TB Test (QFT) TB Positive Criteria today pt is aaox3 ambulating no acute distress no s/s of withdrawals - Treatment Hospital Course: Detox Protocol Followed, Detoxed Safely, Responded well, Discharged Condition Good, Rehab Referral Accepted - Medication Discharge Medications: Ambulatory Orders Methadone [Dolophine -] 50 mg PO DAILY 04/18/19 - Diagnosis (1) Uncomplicated alcohol dependence Current Visit: Yes Status: Chronic (2) Cocaine dependence Current Visit: Yes Status: Chronic Qualifiers: Substance use status: uncomplicated Qualified Code(s): F14.20 - Cocaine dependence, uncomplicated (3) History of drug overdose Current Visit: No Status: Acute (4) Insomnia secondary to depression with anxiety Current Visit: No Status: Acute (5) Substance induced mood disorder Current Visit: No Status: Acute (6) Substance-induced sleep disorder Current Visit: No Status: Acute (7) Weight loss Current Visit: No Status: Acute (8) History of posttraumatic stress disorder (PTSD) Current Visit: No Status: Chronic (9) Insomnia Current Visit: Yes Status: Chronic (10) MDD (major depressive disorder) Current Visit: No Status: Chronic (11) Methadone maintenance therapy patient Current Visit: Yes Status: Chronic (12) Nicotine dependence Current Visit: Yes Status: Chronic Qualifiers: Nicotine product type: cigarettes Substance use status: uncomplicated Qualified Code(s): F17.210 - Nicotine dependence, cigarettes, uncomplicated (13) Non-compliance Current Visit: No Status: Chronic (14) Opioid dependence on agonist therapy Current Visit: No Status: Chronic (15) PTSD (post-traumatic stress disorder) Current Visit: No Status: Chronic (16) Varicose vein of leg Current Visit: No Status: Chronic Qualifiers: Varicose vein complication: unspecified (17) Substance-induced anxiety disorder Current Visit: No Status: Suspected (18) Anemia Current Visit: No Status: Resolved Qualifiers: Anemia type: iron deficiency - AMA Did Patient Leave Against Medical Advice: No
== END 2019-04-22 11:21 | disposition home or self-care (01) | DRG 773 ==
LOC: YASAS 11:33 → Y6N 14:57
PROVIDERS: ADMIT Surgery; ATTEND Surgery
PROC: HZ2ZZZZ Detoxification Services for Substance Abuse Treatment (ICD-10-PCS; principal; 2019-04-18)
DX: F10.230 Alcohol dependence with withdrawal, uncomplicated (principal); F11.20 Opioid dependence, uncomplicated; F14.20 Cocaine dependence, uncomplicated; F17.210 Nicotine dependence, cigarettes, uncomplicated; F19.24 Other psychoactive substance dependence with psychoactive substance-induced mood disorder; F19.280 Other psychoactive substance dependence with psychoactive substance-induced anxiety disorder; F19.282 Other psychoactive substance dependence with psychoactive substance-induced sleep disorder; F51.05 Insomnia due to other mental disorder; F32.9 Major depressive disorder, single episode, unspecified; G47.00 Insomnia, unspecified; R63.4 Abnormal weight loss; I83.90 Asymptomatic varicose veins of unspecified lower extremity; Z91.19 Patient's noncompliance with other medical treatment and regimen; Z87.42 Personal history of other diseases of the female genital tract
CPT/HCPCS: 36415; 80053; 81025; 85027; 86480; 86593; 87389

== ENCOUNTER 2019-05-28 19:20 | Inpatient (IN) | payer OTHER ==
[2019-05-28 21:42] VITALS: BMI 23.6
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
[2019-05-29] MEDS ORDERED: chlordiazePOXIDE HCL 25 MG CAPSULE PO PRN (00:11)
[2019-05-29] MEDS ORDERED: DICYCLOMINE HCL 10 MG CAPSULE PO PRN (00:11)
[2019-05-29] MEDS ORDERED: BISMUTH SUBSALICYLATE 524 MG/30 ML UD PO PRN (00:11)
[2019-05-29] MEDS ORDERED: ACETAMINOPHEN 325 MG TABLET (FP) PO PRN ×2 (00:11)
[2019-05-29] MEDS ORDERED: ONDANSETRON *ODT* 4 MG TABLET SL PRN (00:11)
[2019-05-29] MEDS ORDERED: IBUPROFEN 400 MG TABLET (FP) PO PRN (00:11)
[2019-05-29] MEDS ORDERED: NICOTINE POLACRILEX 2 MG GUM BUC PRN (00:11)
[2019-05-29] MEDS ORDERED: MAGNESIUM CITRATE 300 ML BOTTLE PO PRN (00:11)
[2019-05-29] MEDS ORDERED: MAG HYDROX/AL HYDROX/SIMETH 30 ML UNIT-DOSE CUP PO PRN (00:11)
[2019-05-29] MEDS ORDERED: guaiFENesin 200 MG/10 ML 10 ML UNIT-DOSE CUPS PO PRN (00:11)
[2019-05-29] MEDS ORDERED: MAGNESIUM HYDROX 2400MG/30ML ORAL SUSPENSION 30 ML CUP PO PRN (00:11)
[2019-05-29] MEDS ORDERED: MENTHOL/PHENOL 1 EACH UD MM PRN (00:11)
[2019-05-29] MEDS ORDERED: MELATONIN 5 MG TABLETS PO PRN (00:11)
[2019-05-29] MEDS ORDERED: P-EPHED 60MG/TRIPROLIDI 2.5MG TABLET PO PRN (00:11)
[2019-05-29] MEDS ORDERED: hydrOXYzine PAMOATE 25 MG CAPSULE (FP) PO PRN (00:11)
[2019-05-29] MEDS: METHOCARBAMOL 500 MG TABLET PO PRN (02:48)
[2019-05-29] MEDS: chlordiazePOXIDE HCL 25 MG CAPSULE PO SCH ×4 (06:30→22:20)
[2019-05-29] MEDS ORDERED: MIDAZOLAM HCL 2 MG/2 ML SINGLE DOSE VIAL ONE (08:56)
[2019-05-29] MEDS ORDERED: PROPOFOL 20 ML ONE (08:56)
[2019-05-29] MEDS: PRENATAL VITAMINS W/ FOLIC ACID TABLET (FP) PO SCH (10:25)
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
[2019-05-29 12:06] LABS: HEMOGLOBIN 11.7 GM/dL (10.7-15.3); MCHC 32.4 g/dl (32.0-36.0); MEAN CELL VOLUME 86.3 fl (80-96); MEAN PLT VOLUME 8.1 fl (7.5-11.1); PLATELET COUNT 278 K/MM3 (134-434); RBC 4.18 M/mm3 (3.60-5.2); RDW 18.2 % (11.6-15.6); WHITE BLOOD COUNT 4.5 K/mm3 (4.0-10.0)
[2019-05-29 12:30] LABS: BILIRUBIN,TOTAL 1.1 mg/dL (0.2-1); BLOOD UREA NITROGEN 10.2 mg/dL (7-18); CALCIUM 8.2 mg/dL (8.5-10.1); CREATININE 0.6 mg/dL (0.55-1.3); POTASSIUM 3.6 mmol/L (3.5-5.1); TOT PROT 6.6 g/dl (6.4-8.2)
--- NOTE | 2019-05-29 12:57 | PN ---
S CIWA - CIWA Score Nausea/Vomitin-No Nausea/No Vomiting Muscle Tremors: 4-Moderate,w/Arms Extend Anxiety: 3 Agitation: 4-Moderately Restless Paroxysmal Sweats: 3 Orientation: 0-Oriented Tacttile Disturbances: 0-None Auditory Disturbances: 0-None Visual Disturbances: 0-None Headache: 1-Very Mild CIWA-Ar Total Score: 15 BHS Progress Note (SOAP) Subjective: sweats tired interrupted sleep agitation shakes Objective: 05/29/19 13:04 Vital Signs Temperature 97.7 F 05/29/19 10:07 Pulse Rate 72 05/29/19 10:07 Respiratory Rate 18 05/29/19 10:07 Blood Pressure 154/99 05/29/19 10:07 O2 Sat by Pulse Oximetry (%) Laboratory Tests 05/29/19 05/29/19 08:20 08:20 WBC 4.5 RBC 4.18 Hgb 11.7 Hct 36.0 MCV 86.3 MCH 28.0 MCHC 32.4 RDW 18.2 H Plt Count 278 MPV 8.1 Sodium 139 Potassium 3.6 Chloride 102 Carbon Dioxide 30 Anion Gap 7 L BUN 10.2 Creatinine 0.6 Est GFR (CKD-EPI)AfAm 133.07 Est GFR (CKD-EPI)NonAf 114.82 Random Glucose 82 Calcium 8.2 L Total Bilirubin 1.1 H AST 24 ALT 27 Alkaline Phosphatase 104 Total Protein 6.6 Albumin 3.0 L aaox3 ambulating no acute distress Assessment: 05/29/19 13:05 withdrawals Plan: continue detox increase fluids
[2019-05-29] MEDS ORDERED: METHADONE HCL 10 MG TABLET PO ONE (13:00)
[2019-05-29] MEDS ORDERED: METHADONE 40 MG, METHADONE 10 MG PO ONE (13:30)
[2019-05-29] MEDS ORDERED: METHADONE HCL 40 MG DISPERSABLE TABLET ONE (14:30)
[2019-05-29] MEDS ORDERED: METHADONE HCL 10 MG TABLET ONE (14:30)
[2019-05-29] MEDS: THIAMINE HCL 100 MG TABLET (FP) PO SCH (22:20)
[2019-05-30] MEDS ORDERED: METHADONE HCL 40 MG DISPERSABLE TABLET PO SCH ×3 (06:00)
[2019-05-30] MEDS: chlordiazePOXIDE HCL 25 MG CAPSULE PO SCH ×4 (06:00→22:12)
[2019-05-30] MEDS ORDERED: METHADONE HCL 40 MG DISPERSABLE TABLET ONE (06:04)
[2019-05-30] MEDS: METHADONE 40 MG, METHADONE 10 MG PO SCH (06:04)
[2019-05-30] MEDS ORDERED: METHADONE HCL 10 MG TABLET ONE (06:04)
[2019-05-30] MEDS: PRENATAL VITAMINS W/ FOLIC ACID TABLET (FP) PO SCH (10:53)
--- NOTE | 2019-05-30 11:16 | PN ---
S CIWA - CIWA Score Nausea/Vomitin-No Nausea/No Vomiting Muscle Tremors: 3 Anxiety: 2 Agitation: 2 Paroxysmal Sweats: 2 Orientation: 0-Oriented Tacttile Disturbances: 0-None Auditory Disturbances: 0-None Visual Disturbances: 0-None Headache: 0-None Present CIWA-Ar Total Score: 9 BHS Progress Note (SOAP) Subjective: sweats mild shakes interrupted sleep restless Objective: 05/30/19 11:15 Vital Signs Temperature 97.3 F L 05/30/19 09:59 Pulse Rate 78 05/30/19 09:59 Respiratory Rate 18 05/30/19 09:59 Blood Pressure 137/78 05/30/19 09:59 O2 Sat by Pulse Oximetry (%) Laboratory Tests 05/28/19 05/29/19 05/29/19 22:28 08:20 08:20 WBC 4.5 RBC 4.18 Hgb 11.7 Hct 36.0 MCV 86.3 MCH 28.0 MCHC 32.4 RDW 18.2 H Plt Count 278 MPV 8.1 Sodium 139 Potassium 3.6 Chloride 102 Carbon Dioxide 30 Anion Gap 7 L BUN 10.2 Creatinine 0.6 Est GFR (CKD-EPI)AfAm 133.07 Est GFR (CKD-EPI)NonAf 114.82 Random Glucose 82 Calcium 8.2 L Total Bilirubin 1.1 H AST 24 ALT 27 Alkaline Phosphatase 104 Total Protein 6.6 Albumin 3.0 L POC Urine HCG, Qual Negative labs noted aaox3 ambulating no acute distress Assessment: 05/30/19 11:16 withdrawals Plan: continue detox increase fluids
[2019-05-30] MEDS: THIAMINE HCL 100 MG TABLET (FP) PO SCH (22:12)
[2019-05-30] MEDS: MELATONIN 5 MG TABLETS PO PRN (22:12)
[2019-05-31] MEDS ORDERED: chlordiazePOXIDE HCL 10 MG CAPSULE PO PRN
[2019-05-31] MEDS: METHOCARBAMOL 500 MG TABLET PO PRN (02:54)
[2019-05-31] MEDS: hydrOXYzine PAMOATE 50 MG CAPSULE (FP) PO PRN (02:54)
[2019-05-31] MEDS ORDERED: METHADONE HCL 10 MG TABLET ONE (03:32)
[2019-05-31] MEDS ORDERED: METHADONE HCL 40 MG DISPERSABLE TABLET ONE (03:33)
[2019-05-31] MEDS: METHADONE 40 MG, METHADONE 10 MG PO SCH (06:31)
[2019-05-31] MEDS: chlordiazePOXIDE HCL 10 MG CAPSULE PO SCH ×4 (06:34→22:04)
[2019-05-31] MEDS: PRENATAL VITAMINS W/ FOLIC ACID TABLET (FP) PO SCH (10:21)
[2019-05-31] MEDS ORDERED: FLU VACCINE QUAD 60 MCG/0.5 ML (MDV 19-20) IM ONE (12:00)
--- NOTE | 2019-05-31 13:52 | PN ---
S CIWA - CIWA Score Nausea/Vomitin-No Nausea/No Vomiting Muscle Tremors: 3 Anxiety: 1-Mildly Anxious Agitation: 2 Paroxysmal Sweats: 2 Orientation: 0-Oriented Tacttile Disturbances: 0-None Auditory Disturbances: 0-None Visual Disturbances: 0-None Headache: 0-None Present CIWA-Ar Total Score: 8 [facility] Progress Note (SOAP) Subjective: sweats tired interrupted sleep Objective: 05/31/19 13:50 Vital Signs Temperature 97.5 F L 05/31/19 09:36 Pulse Rate 74 05/31/19 09:36 Respiratory Rate 16 05/31/19 09:36 Blood Pressure 110/84 05/31/19 09:36 O2 Sat by Pulse Oximetry (%) Laboratory Tests 05/28/19 05/29/19 05/29/19 22:28 08:20 08:20 WBC 4.5 RBC 4.18 Hgb 11.7 Hct 36.0 MCV 86.3 MCH 28.0 MCHC 32.4 RDW 18.2 H Plt Count 278 MPV 8.1 Sodium 139 Potassium 3.6 Chloride 102 Carbon Dioxide 30 Anion Gap 7 L BUN 10.2 Creatinine 0.6 Est GFR (CKD-EPI)AfAm 133.07 Est GFR (CKD-EPI)NonAf 114.82 Random Glucose 82 Calcium 8.2 L Total Bilirubin 1.1 H AST 24 ALT 27 Alkaline Phosphatase 104 Total Protein 6.6 Albumin 3.0 L POC Urine HCG, Qual Negative aaox3 ambulating no acute distress Assessment: 05/31/19 13:51 mild withdrawals Plan: continue detox
[2019-05-31] MEDS: MELATONIN 5 MG TABLETS PO PRN (22:04)
[2019-05-31] MEDS: THIAMINE HCL 100 MG TABLET (FP) PO SCH (22:04)
[2019-06-01] MEDS ORDERED: METHADONE HCL 40 MG DISPERSABLE TABLET ONE (04:05)
[2019-06-01] MEDS ORDERED: METHADONE HCL 10 MG TABLET ONE (04:05)
[2019-06-01] MEDS: METHADONE 40 MG, METHADONE 10 MG PO SCH (05:52)
[2019-06-01] MEDS: chlordiazePOXIDE HCL 10 MG CAPSULE PO SCH ×2 (05:53→17:25)
[2019-06-01] MEDS: PRENATAL VITAMINS W/ FOLIC ACID TABLET (FP) PO SCH (10:13)
[2019-06-01] MEDS ORDERED: NICOTINE 21 MG/24 HOURS TOPICAL PATCH TD SCH (10:45)
--- NOTE | 2019-06-01 12:31 | PN ---
S CIWA - CIWA Score Nausea/Vomitin-No Nausea/No Vomiting Muscle Tremors: None Anxiety: 2 Agitation: 0-Normal Activity Paroxysmal Sweats: 1-Minimal Palms Moist Orientation: 0-Oriented Tacttile Disturbances: 0-None Auditory Disturbances: 0-None Visual Disturbances: 0-None Headache: 1-Very Mild CIWA-Ar Total Score: 4 S Progress Note (SOAP) Subjective: c/o mild headache, anxiety, and sweats. Objective: 06/01/19 12:30 Vital Signs 06/01/19 06/01/19 06:00 09:44 Temperature 97.9 F 97.5 F L Pulse Rate 84 75 Respiratory 18 18 Rate Blood Pressure 101/62 91/70 Lab Results WBC 4.5 K/mm3 (4.0-10.0) 05/29/19 08:20 RBC 4.18 M/mm3 (3.60-5.2) 05/29/19 08:20 Hgb 11.7 GM/dL (10.7-15.3) 05/29/19 08:20 Hct 36.0 % (32.4-45.2) 05/29/19 08:20 MCV 86.3 fl (80-96) 05/29/19 08:20 MCHC 32.4 g/dl (32.0-36.0) 05/29/19 08:20 RDW 18.2 % (11.6-15.6) H 05/29/19 08:20 Plt Count 278 K/MM3 (134-434) 05/29/19 08:20 Sodium 139 mmol/L (136-145) 05/29/19 08:20 Potassium 3.6 mmol/L (3.5-5.1) 05/29/19 08:20 Chloride 102 mmol/L (98-107) 05/29/19 08:20 Carbon Dioxide 30 mmol/L (21-32) 05/29/19 08:20 Anion Gap 7 MMOL/L (8-16) L 05/29/19 08:20 BUN 10.2 mg/dL (7-18) 05/29/19 08:20 Creatinine 0.6 mg/dL (0.55-1.3) 05/29/19 08:20 Random Glucose 82 mg/dL (74-106) 05/29/19 08:20 Calcium 8.2 mg/dL (8.5-10.1) L 05/29/19 08:20 Labs noted. Assessment: 06/01/19 12:30 AOX3, in no acute respiratory distress. Full ROM, ambulating in the unit. Withdrawal symptoms. For d/c tomorrow. Plan: continue detox. D/C in AM.
[2019-06-01] MEDS: THIAMINE HCL 100 MG TABLET (FP) PO SCH (22:30)
[2019-06-01] MEDS: MELATONIN 5 MG TABLETS PO PRN (22:31)
[2019-06-01] MEDS: hydrOXYzine PAMOATE 50 MG CAPSULE (FP) PO PRN (22:31)
[2019-06-02] MEDS ORDERED: METHADONE HCL 40 MG DISPERSABLE TABLET ONE (04:14)
[2019-06-02] MEDS ORDERED: METHADONE HCL 10 MG TABLET ONE (04:14)
[2019-06-02] MEDS ORDERED: chlordiazePOXIDE HCL 10 MG CAPSULE PO ONE (05:00)
[2019-06-02] MEDS: METHADONE 40 MG, METHADONE 10 MG PO SCH (05:45)
[2019-06-02 06:20] VITALS: BP 122/74; PULSE 74; TEMP 97.7
--- NOTE | 2019-06-02 17:17 | DS ---
[facility] Detox Discharge Summary Admission Date: 05/29/19 Discharge Date: 06/02/19 - History Present History: Alcohol Dependence, Cocaine Dependence Additional Comments: Patient successfully completed detox and discharged safely. Instructed to follow up with PCP and Psychiatrist within 1-2 weeks. Pertinent Past History: Alcohol dependence Nicotine dependence Crack dependence Cocaine abuse MDD - Physical Exam Results Vital Signs: Vital Signs Temperature 97.7 F 06/02/19 06:00 Pulse Rate 74 06/02/19 06:00 Respiratory Rate 18 06/02/19 06:00 Blood Pressure 122/74 06/02/19 06:00 O2 Sat by Pulse Oximetry (%) Pertinent Admission Physical Exam Findings: Withdrawal sxs Laboratory Tests 05/28/19 05/29/19 05/29/19 22:28 08:20 08:20 WBC 4.5 RBC 4.18 Hgb 11.7 Hct 36.0 MCV 86.3 MCH 28.0 MCHC 32.4 RDW 18.2 H Plt Count 278 MPV 8.1 Sodium 139 Potassium 3.6 Chloride 102 Carbon Dioxide 30 Anion Gap 7 L BUN 10.2 Creatinine 0.6 Est GFR (CKD-EPI)AfAm 133.07 Est GFR (CKD-EPI)NonAf 114.82 Random Glucose 82 Calcium 8.2 L Total Bilirubin 1.1 H AST 24 ALT 27 Alkaline Phosphatase 104 Total Protein 6.6 Albumin 3.0 L POC Urine HCG, Qual Negative Labs reviewed - Treatment Hospital Course: Detox Protocol Followed, Detoxed Safely, Responded well, Discharged Condition Good - Medication Discharge Medications: Ambulatory Orders Methadone [Dolophine -] 50 mg PO DAILY 04/18/19 - Diagnosis (1) Cocaine dependence Status: Chronic Qualifiers: Substance use status: uncomplicated Qualified Code(s): F14.20 - Cocaine dependence, uncomplicated (2) MDD (major depressive disorder) Status: Chronic (3) Nicotine dependence Status: Chronic Qualifiers: Nicotine product type: cigarettes Substance use status: uncomplicated Qualified Code(s): F17.210 - Nicotine dependence, cigarettes, uncomplicated (4) Uncomplicated alcohol dependence Status: Acute - AMA Did Patient Leave Against Medical Advice: No (Follow up with PCP within 1-2 weeks)
== END 2019-06-02 09:32 | disposition home or self-care (01) | DRG 773 ==
LOC: YASAS 19:20 → Y6N 05-29 01:07
PROVIDERS: ADMIT Allergy & Immunology; ATTEND Allergy & Immunology
PROC: HZ2ZZZZ Detoxification Services for Substance Abuse Treatment (ICD-10-PCS; principal; 2019-05-29)
DX: F10.230 Alcohol dependence with withdrawal, uncomplicated (principal); F11.20 Opioid dependence, uncomplicated; F14.20 Cocaine dependence, uncomplicated; F17.210 Nicotine dependence, cigarettes, uncomplicated; F33.9 Major depressive disorder, recurrent, unspecified; F19.280 Other psychoactive substance dependence with psychoactive substance-induced anxiety disorder; F19.282 Other psychoactive substance dependence with psychoactive substance-induced sleep disorder; F43.10 Post-traumatic stress disorder, unspecified; I83.90 Asymptomatic varicose veins of unspecified lower extremity
CPT/HCPCS: 36415; 80053; 81025; 85027; Q2036

== ENCOUNTER 2019-06-27 16:40 | Inpatient (IN) | payer OTHER ==
--- NOTE | 2019-06-27 21:30 | HP ---
[facility] Rehab Assess/Revision - Admission History Admitted to Rehab from: [facility] Date of Admission to Rehab: 06/27/2019 - Vital signs Vital Signs: Vital Signs Period Temp Pulse Resp BP Sys/Maharaj Pulse Ox Last 24 Hr 97.8 F 84 20 101/64 - Findings Detox History & Physical reviewed: Yes Concur with findings: Yes Comments/Additional Findings: client here for rehab admission today. she is a transfer from [facility]. client was admitted there 3 days ago for depression/si. client denies si. while there client was detoxed. dc today and reports drinking 1 pint of vodka. denies hx/o seizures. presently denies any withdrawal sx's. PADMA .[id number]. clinically stable a/o x3 nad.Completed detox here 3 weeks ago. utox + mtd, [facility]zo, [place]. client is on [facility]. but was last medicated at [facility] today. she reports she on methadone 60 mg daily. Inpatient Rehab Admission - Rehab Decision to Admit Inpatient rehab admission?: Yes - Initial Determination Are CD services needed?: Yes Free of communicable disease: Yes Not in need of hospitalization: Yes - Rehab Admission Criteria Previous failed treatment: Yes Poor recovery environment: Yes Comorbidities: Yes Lacks judgement: No Patient is meeting Inpatient Rehab admission criteria:: Yes
[2019-06-27] MEDS ORDERED: MENTHOL/PHENOL 1 EACH UD MM PRN (21:31)
[2019-06-27] MEDS ORDERED: ACETAMINOPHEN 325 MG TABLET (FP) PO PRN (21:31)
[2019-06-27] MEDS ORDERED: MAGNESIUM HYDROX 2400MG/30ML ORAL SUSPENSION 30 ML CUP PO PRN (21:31)
[2019-06-27] MEDS ORDERED: LOPERAMIDE HCL 2 MG CAPSULE PO PRN (21:31)
[2019-06-27] MEDS ORDERED: guaiFENesin 200 MG/10 ML 10 ML UNIT-DOSE CUPS PO PRN (21:31)
[2019-06-27] MEDS ORDERED: P-EPHED 60MG/TRIPROLIDI 2.5MG TABLET PO PRN (21:31)
[2019-06-27] MEDS ORDERED: MAGNESIUM CITRATE 300 ML BOTTLE PO PRN (21:31)
[2019-06-27] MEDS: MELATONIN 5 MG TABLETS PO PRN (23:13)
[2019-06-27] MEDS: THIAMINE HCL 100 MG TABLET (FP) PO SCH (23:14)
[2019-06-28] MEDS ORDERED: METHADONE HCL 10 MG TABLET PO SCH (07:45)
[2019-06-28] MEDS ORDERED: METHADONE 40 MG, METHADONE 20 MG PO ONE (08:15)
[2019-06-28] MEDS ORDERED: METHADONE HCL 40 MG DISPERSABLE TABLET ONE (08:25)
[2019-06-28] MEDS ORDERED: METHADONE HCL 10 MG TABLET ONE (08:25)
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
[2019-06-28] MEDS: PRENATAL VITAMINS W/ FOLIC ACID TABLET (FP) PO SCH (10:30)
[2019-06-28] MEDS: NICOTINE 21 MG/24 HOURS TOPICAL PATCH TD SCH (10:30)
[2019-06-28] MEDS ORDERED: PARoxetine HCL 10 MG TABLET PO ONE (11:15)
[2019-06-28] MEDS: NICOTINE POLACRILEX 4 MG GUM BUC PRN ×2 (11:21→17:52)
--- NOTE | 2019-06-28 13:20 | EKG ---
Test Reason : Blood Pressure : / mmHG Vent. Rate : 077 BPM Atrial Rate : 077 BPM P-R Int : 152 ms QRS Dur : 090 ms QT Int : 392 ms P-R-T Axes : 059 031 051 degrees QTc Int : 443 ms NORMAL SINUS RHYTHM NONSPECIFIC T WAVE ABNORMALITY ABNORMAL ECG NO PREVIOUS ECGS AVAILABLE Confirmed by DOMINIC SANDY MD ([id number]) on 06/28/2019 1:19:50 PM Referred By: DR SPEARS Confirmed By:DOMINIC SANDY MD
[2019-06-28] MEDS: hydrOXYzine PAMOATE 25 MG CAPSULE (FP) PO PRN ×2 (17:52→21:21)
[2019-06-28] MEDS: THIAMINE HCL 100 MG TABLET (FP) PO SCH (21:21)
[2019-06-28] MEDS: MELATONIN 5 MG TABLETS PO PRN (21:22)
[2019-06-29] MEDS ORDERED: METHADONE HCL 10 MG TABLET ONE (06:18)
[2019-06-29] MEDS ORDERED: METHADONE HCL 40 MG DISPERSABLE TABLET ONE (06:18)
[2019-06-29] MEDS: MAG HYDROX/AL HYDROX/SIMETH 30 ML UNIT-DOSE CUP PO PRN (06:19)
[2019-06-29] MEDS: METHADONE 40 MG, METHADONE 20 MG PO SCH (06:19)
[2019-06-29] MEDS: hydrOXYzine PAMOATE 25 MG CAPSULE (FP) PO PRN ×3 (06:21→17:50)
[2019-06-29] MEDS ORDERED: PT OWN MED DRAWER 7, Y5N ONE ×2 (09:23→17:50)
[2019-06-29] MEDS: IBUPROFEN 400 MG TABLET (FP) PO PRN (09:25)
[2019-06-29] MEDS: PRENATAL VITAMINS W/ FOLIC ACID TABLET (FP) PO SCH (09:27)
[2019-06-29] MEDS: PARoxetine HCL 10 MG TABLET PO SCH (09:27)
[2019-06-29] MEDS: PANTOPRAZOLE 20 MG TABLET (FP) PO SCH (09:27)
[2019-06-29] MEDS: NICOTINE 21 MG/24 HOURS TOPICAL PATCH TD SCH (09:28)
[2019-06-29] MEDS: CALCIUM CARBONATE 650 MG TABLET PO PRN ×2 (11:09→17:50)
[2019-06-29] MEDS: NICOTINE POLACRILEX 4 MG GUM BUC PRN (17:52)
[2019-06-29] MEDS: MELATONIN 5 MG TABLETS PO PRN (21:12)
[2019-06-29] MEDS: THIAMINE HCL 100 MG TABLET (FP) PO SCH (21:12)
[2019-06-30] MEDS ORDERED: METHADONE HCL 40 MG DISPERSABLE TABLET ONE (03:04)
[2019-06-30] MEDS ORDERED: METHADONE HCL 10 MG TABLET ONE (03:04)
[2019-06-30] MEDS: METHADONE 40 MG, METHADONE 20 MG PO SCH (06:16)
[2019-06-30] MEDS: hydrOXYzine PAMOATE 25 MG CAPSULE (FP) PO PRN ×3 (06:17→21:18)
[2019-06-30] MEDS: CALCIUM CARBONATE 650 MG TABLET PO PRN (06:17)
--- NOTE | 2019-06-30 07:52 | PN ---
[facility] Progress Note Note: CLIENT SEEN FOR ABNORMAL PLATELET OF 13. CLIENT REPORTS HX BUT DOES NOT KNOW HER BASE LINE. SHE DENIES ANY COMPLAINTS TO INCLUDE NOSE BLEEDS, BLOODING STOOL, BLEEDING OF GUMS. PATIENT TEACHING REINFORCED. CLIENT MADE AWARE TO REPORTS ANY BLEEDING ISSUES IMMEDIATELY. P- WILL REPEAT CBC CLIENT THERE IS NO PREVIOUS LABS TO COMPARE BLEEDING PRECAUTION MONITOR CLINICALLY. CONSIDER TRANSFER TO [facility] FOR FURTHER EVAL AFTER REPEAT LABS.
[2019-06-30] MEDS: PARoxetine HCL 10 MG TABLET PO SCH (10:08)
[2019-06-30] MEDS: PRENATAL VITAMINS W/ FOLIC ACID TABLET (FP) PO SCH (10:08)
[2019-06-30] MEDS: NICOTINE 21 MG/24 HOURS TOPICAL PATCH TD SCH (10:08)
[2019-06-30] MEDS: PANTOPRAZOLE 20 MG TABLET (FP) PO SCH (10:08)
[2019-06-30] MEDS: THIAMINE HCL 100 MG TABLET (FP) PO SCH (21:15)
[2019-06-30] MEDS: IBUPROFEN 400 MG TABLET (FP) PO PRN (21:16)
[2019-06-30] MEDS: MELATONIN 5 MG TABLETS PO PRN (21:17)
[2019-06-30] MEDS: NICOTINE POLACRILEX 4 MG GUM BUC PRN (21:18)
[2019-07-01] MEDS ORDERED: METHADONE HCL 40 MG DISPERSABLE TABLET ONE (06:38)
[2019-07-01] MEDS ORDERED: METHADONE HCL 10 MG TABLET ONE (06:38)
[2019-07-01] MEDS: hydrOXYzine PAMOATE 25 MG CAPSULE (FP) PO PRN ×4 (06:39→22:50)
[2019-07-01] MEDS: METHADONE 40 MG, METHADONE 20 MG PO SCH (06:41)
[2019-07-01] MEDS: NICOTINE 21 MG/24 HOURS TOPICAL PATCH TD SCH (10:15)
[2019-07-01] MEDS: CALCIUM CARBONATE 650 MG TABLET PO PRN (10:15)
[2019-07-01] MEDS: PRENATAL VITAMINS W/ FOLIC ACID TABLET (FP) PO SCH (10:16)
[2019-07-01] MEDS: PARoxetine HCL 10 MG TABLET PO SCH (10:16)
[2019-07-01] MEDS: PANTOPRAZOLE 20 MG TABLET (FP) PO SCH (10:16)
[2019-07-01] MEDS: NICOTINE POLACRILEX 4 MG GUM BUC PRN ×4 (10:17→21:48)
[2019-07-01 12:10] LABS: ALBUMIN 3.4 g/dl (3.4-5.0); BILIRUBIN,TOTAL 0.4 mg/dL (0.2-1); BLOOD UREA NITROGEN 15.3 mg/dL (7-18); CALCIUM 9.3 mg/dL (8.5-10.1); CREATININE 0.7 mg/dL (0.55-1.3); POTASSIUM 4.4 mmol/L (3.5-5.1); TOT PROT 7.3 g/dl (6.4-8.2)
[2019-07-01 12:12] LABS: BASO % 0.6 % (0-2.0); EOS % 7.9 % (0-4.5); HEMATOCRIT 39.7 % (32.4-45.2); HEMOGLOBIN 12.7 GM/dL (10.7-15.3); LYMPH % 32.7 % (8-40); MCH 27.8 pg (25.7-33.7); MEAN CELL VOLUME 86.7 fl (80-96); MEAN PLT VOLUME 8.8 fl (7.5-11.1); MONO % 9.9 % (3.8-10.2); NEUT % 48.9 % (42.8-82.8); PLATELET COUNT 245 K/MM3 (134-434); RBC 4.58 M/mm3 (3.60-5.2); RDW 18.4 % (11.6-15.6); WHITE BLOOD COUNT 5.3 K/mm3 (4.0-10.0)
[2019-07-01] MEDS: MELATONIN 5 MG TABLETS PO PRN (21:47)
[2019-07-01] MEDS: THIAMINE HCL 100 MG TABLET (FP) PO SCH (21:47)
[2019-07-02] MEDS ORDERED: METHADONE HCL 10 MG TABLET ONE (06:19)
[2019-07-02] MEDS ORDERED: METHADONE HCL 40 MG DISPERSABLE TABLET ONE (06:20)
[2019-07-02] MEDS: METHADONE 40 MG, METHADONE 20 MG PO SCH (06:22)
[2019-07-02] MEDS: NICOTINE POLACRILEX 4 MG GUM BUC PRN ×3 (06:25→21:09)
[2019-07-02] MEDS: hydrOXYzine PAMOATE 25 MG CAPSULE (FP) PO PRN ×3 (06:26→21:08)
[2019-07-02] MEDS: NICOTINE 21 MG/24 HOURS TOPICAL PATCH TD SCH (09:41)
[2019-07-02] MEDS: PARoxetine HCL 10 MG TABLET PO SCH (09:41)
[2019-07-02] MEDS: PRENATAL VITAMINS W/ FOLIC ACID TABLET (FP) PO SCH (09:41)
[2019-07-02] MEDS: PANTOPRAZOLE 20 MG TABLET (FP) PO SCH (09:42)
[2019-07-02] MEDS: IBUPROFEN 400 MG TABLET (FP) PO PRN (10:16)
[2019-07-02] MEDS: MELATONIN 5 MG TABLETS PO PRN (21:08)
[2019-07-02] MEDS: THIAMINE HCL 100 MG TABLET (FP) PO SCH (21:08)
[2019-07-03] MEDS ORDERED: METHADONE HCL 40 MG DISPERSABLE TABLET ONE (06:23)
[2019-07-03] MEDS ORDERED: METHADONE HCL 10 MG TABLET ONE (06:23)
[2019-07-03] MEDS: METHADONE 40 MG, METHADONE 20 MG PO SCH (06:24)
[2019-07-03] MEDS: hydrOXYzine PAMOATE 25 MG CAPSULE (FP) PO PRN ×3 (06:24→17:04)
[2019-07-03] MEDS ORDERED: PT OWN MED DRAWER 7, Y5N ONE (08:55)
[2019-07-03] MEDS: PRENATAL VITAMINS W/ FOLIC ACID TABLET (FP) PO SCH (10:15)
[2019-07-03] MEDS: NICOTINE POLACRILEX 4 MG GUM BUC PRN ×3 (10:15→17:05)
[2019-07-03] MEDS: PANTOPRAZOLE 20 MG TABLET (FP) PO SCH (10:15)
[2019-07-03] MEDS: PARoxetine HCL 10 MG TABLET PO SCH (10:15)
[2019-07-03] MEDS: NICOTINE 21 MG/24 HOURS TOPICAL PATCH TD SCH (10:16)
[2019-07-03] MEDS: CALCIUM CARBONATE 650 MG TABLET PO PRN (10:16)
--- NOTE | 2019-07-03 11:02 | PN ---
S Progress Note Note: Patient reports sleeping poorly despite taking Melatonin and Vistaril. Discussed hypnotic properties of Belsomra with patient and she agreed to try it
[2019-07-03] MEDS: TOLNAFTATE 1% CREAM 15 GM TUBE TP SCH ×2 (12:39→21:41)
[2019-07-03] MEDS: COLLOIDAL OATMEAL 1 BAR EACH TP PRN (12:40)
--- NOTE | 2019-07-03 12:58 | PREP.REFER ---
HIV PrEP/PEP - PrEP HIV Risk Assessment When was your last HIV test?: 06/30/2019-negative Are you concerned about any sexual encounters past 6 months?: No (Used condoms for transactional sex) Have you had a STI in the last 6 months?: No Have you shared needles or other equipment?: No Are you interested in daily medication to help prevent HIV?: Yes Recommendation: Consider PrEP referral Comment: patient is interested in PrEP. Will contact the PrEP counselor.
[2019-07-03] MEDS: SUVOREXANT 10 MG TABLET PO PRN (21:40)
[2019-07-03] MEDS: THIAMINE HCL 100 MG TABLET (FP) PO SCH (21:41)
[2019-07-04] MEDS ORDERED: METHADONE HCL 10 MG TABLET ONE (03:12)
[2019-07-04] MEDS ORDERED: METHADONE HCL 40 MG DISPERSABLE TABLET ONE (03:13)
[2019-07-04] MEDS: hydrOXYzine PAMOATE 25 MG CAPSULE (FP) PO PRN ×2 (06:28→17:09)
[2019-07-04] MEDS: METHADONE 40 MG, METHADONE 20 MG PO SCH (06:28)
[2019-07-04] MEDS: NICOTINE 21 MG/24 HOURS TOPICAL PATCH TD SCH (10:05)
[2019-07-04] MEDS: PRENATAL VITAMINS W/ FOLIC ACID TABLET (FP) PO SCH (10:06)
[2019-07-04] MEDS: PARoxetine HCL 10 MG TABLET PO SCH (10:06)
[2019-07-04] MEDS: PANTOPRAZOLE 20 MG TABLET (FP) PO SCH (10:06)
[2019-07-04] MEDS: TOLNAFTATE 1% CREAM 15 GM TUBE TP SCH ×2 (10:06→21:30)
[2019-07-04] MEDS: NICOTINE POLACRILEX 4 MG GUM BUC PRN ×4 (10:07→21:31)
[2019-07-04] MEDS: THIAMINE HCL 100 MG TABLET (FP) PO SCH (21:30)
[2019-07-04] MEDS: SUVOREXANT 10 MG TABLET PO PRN (21:30)
[2019-07-05] MEDS ORDERED: METHADONE HCL 40 MG DISPERSABLE TABLET ONE (06:05)
[2019-07-05] MEDS ORDERED: METHADONE HCL 10 MG TABLET ONE (06:05)
[2019-07-05] MEDS: METHADONE 40 MG, METHADONE 20 MG PO SCH (06:30)
[2019-07-05] MEDS: NICOTINE POLACRILEX 4 MG GUM BUC PRN ×2 (06:31→10:24)
[2019-07-05] MEDS: hydrOXYzine PAMOATE 25 MG CAPSULE (FP) PO PRN ×4 (06:31→21:38)
[2019-07-05] MEDS: TOLNAFTATE 1% CREAM 15 GM TUBE TP SCH ×2 (10:21→21:39)
[2019-07-05] MEDS: NICOTINE 21 MG/24 HOURS TOPICAL PATCH TD SCH (10:22)
[2019-07-05] MEDS: PANTOPRAZOLE 20 MG TABLET (FP) PO SCH (10:23)
[2019-07-05] MEDS: PARoxetine HCL 10 MG TABLET PO SCH (10:23)
[2019-07-05] MEDS: PRENATAL VITAMINS W/ FOLIC ACID TABLET (FP) PO SCH (10:23)
[2019-07-05] MEDS: THIAMINE HCL 100 MG TABLET (FP) PO SCH (21:37)
[2019-07-05] MEDS: SUVOREXANT 10 MG TABLET PO PRN (21:39)
[2019-07-06] MEDS ORDERED: METHADONE HCL 10 MG TABLET ONE (06:04)
[2019-07-06] MEDS ORDERED: METHADONE HCL 40 MG DISPERSABLE TABLET ONE (06:04)
[2019-07-06] MEDS: METHADONE 40 MG, METHADONE 20 MG PO SCH (06:19)
[2019-07-06] MEDS: hydrOXYzine PAMOATE 25 MG CAPSULE (FP) PO PRN ×4 (06:20→21:21)
[2019-07-06] MEDS: NICOTINE POLACRILEX 4 MG GUM BUC PRN ×4 (06:21→21:24)
[2019-07-06] MEDS: MAG HYDROX/AL HYDROX/SIMETH 30 ML UNIT-DOSE CUP PO PRN (06:58)
[2019-07-06] MEDS ORDERED: PT OWN MED DRAWER 7, Y5N ONE ×2 (08:52→21:23)
[2019-07-06] MEDS: PANTOPRAZOLE 20 MG TABLET (FP) PO SCH (10:18)
[2019-07-06] MEDS: NICOTINE 21 MG/24 HOURS TOPICAL PATCH TD SCH (10:18)
[2019-07-06] MEDS: PARoxetine HCL 10 MG TABLET PO SCH (10:18)
[2019-07-06] MEDS: CALCIUM CARBONATE 650 MG TABLET PO PRN (10:18)
[2019-07-06] MEDS: PRENATAL VITAMINS W/ FOLIC ACID TABLET (FP) PO SCH (10:18)
[2019-07-06] MEDS: TOLNAFTATE 1% CREAM 15 GM TUBE TP SCH ×2 (10:19→21:24)
--- NOTE | 2019-07-06 17:11 | PN ---
[facility] Progress Note Note: Psychiatry Attending's note : Called by nurse. Issue : renewal of suvorexant. Chart reviewed. Medication confirmed. Well tolerated. No report of adverse effects. Consent already granted from the patient (as per consults). Intervention : belsomra 10 mg po hs prn. Resumed.
[2019-07-06] MEDS: THIAMINE HCL 100 MG TABLET (FP) PO SCH (21:21)
[2019-07-06] MEDS: SUVOREXANT 10 MG TABLET PO PRN (21:24)
[2019-07-07] MEDS ORDERED: METHADONE HCL 10 MG TABLET ONE (05:53)
[2019-07-07] MEDS ORDERED: METHADONE HCL 40 MG DISPERSABLE TABLET ONE (05:53)
[2019-07-07] MEDS: METHADONE 40 MG, METHADONE 20 MG PO SCH (06:34)
[2019-07-07] MEDS: NICOTINE POLACRILEX 4 MG GUM BUC PRN ×3 (06:34→12:57)
[2019-07-07] MEDS: hydrOXYzine PAMOATE 25 MG CAPSULE (FP) PO PRN ×3 (06:34→21:26)
[2019-07-07] MEDS ORDERED: PT OWN MED DRAWER 7, Y5N ONE (08:39)
[2019-07-07] MEDS: CALCIUM CARBONATE 650 MG TABLET PO PRN (10:15)
[2019-07-07] MEDS: PRENATAL VITAMINS W/ FOLIC ACID TABLET (FP) PO SCH (10:15)
[2019-07-07] MEDS: NICOTINE 21 MG/24 HOURS TOPICAL PATCH TD SCH (10:16)
[2019-07-07] MEDS: PANTOPRAZOLE 20 MG TABLET (FP) PO SCH (10:16)
[2019-07-07] MEDS: TOLNAFTATE 1% CREAM 15 GM TUBE TP SCH ×2 (10:16→21:27)
[2019-07-07] MEDS: PARoxetine HCL 10 MG TABLET PO SCH (10:16)
[2019-07-07] MEDS: THIAMINE HCL 100 MG TABLET (FP) PO SCH (21:24)
[2019-07-07] MEDS: SUVOREXANT 10 MG TABLET PO PRN (21:26)
[2019-07-08] MEDS ORDERED: METHADONE HCL 10 MG TABLET ONE (03:24)
[2019-07-08] MEDS ORDERED: METHADONE HCL 40 MG DISPERSABLE TABLET ONE (03:24)
[2019-07-08] MEDS: METHADONE 40 MG, METHADONE 20 MG PO SCH (06:15)
[2019-07-08] MEDS: NICOTINE POLACRILEX 4 MG GUM BUC PRN ×4 (06:16→21:41)
[2019-07-08] MEDS: hydrOXYzine PAMOATE 25 MG CAPSULE (FP) PO PRN ×2 (06:16→10:22)
[2019-07-08] MEDS: COLLOIDAL OATMEAL 1 BAR EACH TP PRN (06:22)
[2019-07-08] MEDS ORDERED: PT OWN MED DRAWER 7, Y5N ONE ×2 (08:38→21:41)
[2019-07-08] MEDS: TOLNAFTATE 1% CREAM 15 GM TUBE TP SCH ×2 (10:22→21:40)
[2019-07-08] MEDS: PARoxetine HCL 10 MG TABLET PO SCH (10:22)
[2019-07-08] MEDS: PANTOPRAZOLE 20 MG TABLET (FP) PO SCH (10:22)
[2019-07-08] MEDS: NICOTINE 21 MG/24 HOURS TOPICAL PATCH TD SCH (10:23)
[2019-07-08] MEDS: PRENATAL VITAMINS W/ FOLIC ACID TABLET (FP) PO SCH (10:23)
[2019-07-08] MEDS: THIAMINE HCL 100 MG TABLET (FP) PO SCH (21:40)
[2019-07-08] MEDS: SUVOREXANT 10 MG TABLET PO PRN (21:43)
[2019-07-09] MEDS ORDERED: METHADONE HCL 10 MG TABLET ONE (03:22)
[2019-07-09] MEDS ORDERED: METHADONE HCL 40 MG DISPERSABLE TABLET ONE (03:22)
[2019-07-09] MEDS: METHADONE 40 MG, METHADONE 20 MG PO SCH (06:16)
[2019-07-09] MEDS: hydrOXYzine PAMOATE 25 MG CAPSULE (FP) PO PRN ×2 (06:16→17:21)
[2019-07-09] MEDS: NICOTINE POLACRILEX 4 MG GUM BUC PRN ×4 (06:17→21:23)
[2019-07-09] MEDS: CALCIUM CARBONATE 650 MG TABLET PO PRN (10:52)
[2019-07-09] MEDS: PRENATAL VITAMINS W/ FOLIC ACID TABLET (FP) PO SCH (10:52)
[2019-07-09] MEDS: PARoxetine HCL 10 MG TABLET PO SCH (10:52)
[2019-07-09] MEDS: PANTOPRAZOLE 20 MG TABLET (FP) PO SCH (10:52)
[2019-07-09] MEDS: NICOTINE 21 MG/24 HOURS TOPICAL PATCH TD SCH (10:52)
[2019-07-09] MEDS: TOLNAFTATE 1% CREAM 15 GM TUBE TP SCH ×2 (10:52→21:22)
[2019-07-09] MEDS: THIAMINE HCL 100 MG TABLET (FP) PO SCH (21:20)
[2019-07-09] MEDS: SUVOREXANT 10 MG TABLET PO PRN (21:22)
[2019-07-10] MEDS ORDERED: METHADONE HCL 10 MG TABLET ONE (03:25)
[2019-07-10] MEDS ORDERED: METHADONE HCL 40 MG DISPERSABLE TABLET ONE (03:25)
[2019-07-10] MEDS: METHADONE 40 MG, METHADONE 20 MG PO SCH (07:11)
[2019-07-10] MEDS: NICOTINE POLACRILEX 4 MG GUM BUC PRN ×4 (07:12→21:30)
[2019-07-10] MEDS: hydrOXYzine PAMOATE 25 MG CAPSULE (FP) PO PRN ×3 (07:12→21:28)
[2019-07-10] MEDS: PRENATAL VITAMINS W/ FOLIC ACID TABLET (FP) PO SCH (10:17)
[2019-07-10] MEDS: PARoxetine HCL 10 MG TABLET PO SCH (10:17)
[2019-07-10] MEDS: NICOTINE 21 MG/24 HOURS TOPICAL PATCH TD SCH (10:17)
[2019-07-10] MEDS: CALCIUM CARBONATE 650 MG TABLET PO PRN (10:17)
[2019-07-10] MEDS: PANTOPRAZOLE 20 MG TABLET (FP) PO SCH (10:17)
[2019-07-10] MEDS: TOLNAFTATE 1% CREAM 15 GM TUBE TP SCH ×2 (10:17→21:28)
[2019-07-10] MEDS: THIAMINE HCL 100 MG TABLET (FP) PO SCH (21:28)
[2019-07-10] MEDS: SUVOREXANT 10 MG TABLET PO PRN (21:28)
[2019-07-11] MEDS ORDERED: METHADONE 40 MG, METHADONE 20 MG PO SCH (06:00)
[2019-07-11] MEDS ORDERED: METHADONE HCL 10 MG TABLET ONE (06:28)
[2019-07-11] MEDS ORDERED: METHADONE HCL 40 MG DISPERSABLE TABLET ONE (06:28)
[2019-07-11] MEDS: hydrOXYzine PAMOATE 25 MG CAPSULE (FP) PO PRN ×2 (06:36→12:31)
[2019-07-11] MEDS: NICOTINE POLACRILEX 4 MG GUM BUC PRN ×2 (06:36→12:31)
[2019-07-11] MEDS: COLLOIDAL OATMEAL 1 BAR EACH TP PRN (06:43)
[2019-07-11] MEDS: PRENATAL VITAMINS W/ FOLIC ACID TABLET (FP) PO SCH (10:25)
[2019-07-11] MEDS: PARoxetine HCL 10 MG TABLET PO SCH (10:25)
[2019-07-11] MEDS: NICOTINE 21 MG/24 HOURS TOPICAL PATCH TD SCH (10:25)
[2019-07-11] MEDS: PANTOPRAZOLE 20 MG TABLET (FP) PO SCH (10:25)
[2019-07-11] MEDS: TOLNAFTATE 1% CREAM 15 GM TUBE TP SCH ×2 (10:26→21:10)
[2019-07-11] MEDS ORDERED: PT OWN MED DRAWER 7, Y5N ONE ×2 (10:43→20:32)
[2019-07-11] MEDS: IBUPROFEN 400 MG TABLET (FP) PO PRN (12:31)
[2019-07-11] MEDS: THIAMINE HCL 100 MG TABLET (FP) PO SCH (21:10)
[2019-07-11] MEDS: SUVOREXANT 10 MG TABLET PO PRN (21:11)
[2019-07-12] MEDS ORDERED: METHADONE HCL 40 MG DISPERSABLE TABLET ONE (05:54)
[2019-07-12] MEDS ORDERED: METHADONE HCL 10 MG TABLET ONE (05:54)
[2019-07-12] MEDS: METHADONE 40 MG, METHADONE 20 MG PO SCH (06:07)
[2019-07-12] MEDS: hydrOXYzine PAMOATE 25 MG CAPSULE (FP) PO PRN ×3 (06:07→17:28)
[2019-07-12] MEDS: NICOTINE POLACRILEX 4 MG GUM BUC PRN ×5 (06:08→21:41)
[2019-07-12] MEDS: PRENATAL VITAMINS W/ FOLIC ACID TABLET (FP) PO SCH (10:05)
[2019-07-12] MEDS: CALCIUM CARBONATE 650 MG TABLET PO PRN (10:05)
[2019-07-12] MEDS: PARoxetine HCL 10 MG TABLET PO SCH (10:05)
[2019-07-12] MEDS: TOLNAFTATE 1% CREAM 15 GM TUBE TP SCH ×2 (10:05→21:42)
[2019-07-12] MEDS: NICOTINE 21 MG/24 HOURS TOPICAL PATCH TD SCH (10:05)
[2019-07-12] MEDS: PANTOPRAZOLE 20 MG TABLET (FP) PO SCH (10:05)
[2019-07-12] MEDS ORDERED: PT OWN MED DRAWER 7, Y5N ONE (20:52)
[2019-07-12] MEDS: SUVOREXANT 10 MG TABLET PO PRN (21:41)
[2019-07-12] MEDS: THIAMINE HCL 100 MG TABLET (FP) PO SCH (21:41)
[2019-07-13] MEDS ORDERED: METHADONE HCL 10 MG TABLET ONE (03:44)
[2019-07-13] MEDS ORDERED: METHADONE HCL 40 MG DISPERSABLE TABLET ONE (03:44)
[2019-07-13] MEDS: METHADONE 40 MG, METHADONE 20 MG PO SCH (06:37)
[2019-07-13] MEDS: hydrOXYzine PAMOATE 25 MG CAPSULE (FP) PO PRN ×3 (06:38→21:42)
[2019-07-13] MEDS: NICOTINE POLACRILEX 4 MG GUM BUC PRN ×3 (06:38→21:42)
[2019-07-13] MEDS ORDERED: PT OWN MED DRAWER 7, Y5N ONE ×2 (08:50→20:04)
[2019-07-13] MEDS: TOLNAFTATE 1% CREAM 15 GM TUBE TP SCH ×2 (10:08→21:41)
[2019-07-13] MEDS: PANTOPRAZOLE 20 MG TABLET (FP) PO SCH (10:08)
[2019-07-13] MEDS: PRENATAL VITAMINS W/ FOLIC ACID TABLET (FP) PO SCH (10:08)
[2019-07-13] MEDS: NICOTINE 21 MG/24 HOURS TOPICAL PATCH TD SCH (10:08)
[2019-07-13] MEDS: PARoxetine HCL 10 MG TABLET PO SCH (10:08)
[2019-07-13] MEDS: THIAMINE HCL 100 MG TABLET (FP) PO SCH (21:42)
[2019-07-13] MEDS: SUVOREXANT 10 MG TABLET PO PRN (21:43)
[2019-07-14] MEDS ORDERED: METHADONE HCL 40 MG DISPERSABLE TABLET ONE (02:54)
[2019-07-14] MEDS ORDERED: METHADONE HCL 10 MG TABLET ONE (02:54)
[2019-07-14] MEDS: hydrOXYzine PAMOATE 25 MG CAPSULE (FP) PO PRN ×3 (06:38→21:22)
[2019-07-14] MEDS: METHADONE 40 MG, METHADONE 20 MG PO SCH (06:39)
[2019-07-14] MEDS: NICOTINE POLACRILEX 4 MG GUM BUC PRN ×4 (06:39→21:23)
[2019-07-14] MEDS ORDERED: PT OWN MED DRAWER 7, Y5N ONE (08:43)
[2019-07-14] MEDS: PARoxetine HCL 10 MG TABLET PO SCH (10:10)
[2019-07-14] MEDS: TOLNAFTATE 1% CREAM 15 GM TUBE TP SCH ×2 (10:10→21:20)
[2019-07-14] MEDS: PRENATAL VITAMINS W/ FOLIC ACID TABLET (FP) PO SCH (10:10)
[2019-07-14] MEDS: NICOTINE 21 MG/24 HOURS TOPICAL PATCH TD SCH (10:10)
[2019-07-14] MEDS: PANTOPRAZOLE 20 MG TABLET (FP) PO SCH (10:10)
[2019-07-14] MEDS: THIAMINE HCL 100 MG TABLET (FP) PO SCH (21:20)
[2019-07-14] MEDS: SUVOREXANT 10 MG TABLET PO PRN (21:22)
[2019-07-15] MEDS ORDERED: METHADONE HCL 40 MG DISPERSABLE TABLET ONE (06:02)
[2019-07-15] MEDS ORDERED: METHADONE HCL 10 MG TABLET ONE (06:02)
[2019-07-15] MEDS: COLLOIDAL OATMEAL 1 BAR EACH TP PRN (06:29)
[2019-07-15] MEDS: METHADONE 40 MG, METHADONE 20 MG PO SCH (06:31)
[2019-07-15] MEDS: NICOTINE POLACRILEX 4 MG GUM BUC PRN ×5 (06:31→21:29)
[2019-07-15] MEDS: hydrOXYzine PAMOATE 25 MG CAPSULE (FP) PO PRN ×4 (06:31→21:28)
[2019-07-15] MEDS: NICOTINE 21 MG/24 HOURS TOPICAL PATCH TD SCH (10:21)
[2019-07-15] MEDS: CALCIUM CARBONATE 650 MG TABLET PO PRN (10:22)
[2019-07-15] MEDS: PANTOPRAZOLE 20 MG TABLET (FP) PO SCH (10:22)
[2019-07-15] MEDS: PRENATAL VITAMINS W/ FOLIC ACID TABLET (FP) PO SCH (10:22)
[2019-07-15] MEDS: TOLNAFTATE 1% CREAM 15 GM TUBE TP SCH ×2 (10:22→21:28)
[2019-07-15] MEDS: PARoxetine HCL 10 MG TABLET PO SCH (10:22)
[2019-07-15] MEDS: THIAMINE HCL 100 MG TABLET (FP) PO SCH (21:28)
[2019-07-15] MEDS: SUVOREXANT 10 MG TABLET PO PRN (21:28)
[2019-07-15] MEDS ORDERED: PT OWN MED DRAWER 7, Y5N ONE (21:28)
[2019-07-16] MEDS ORDERED: METHADONE HCL 10 MG TABLET ONE (06:34)
[2019-07-16] MEDS: hydrOXYzine PAMOATE 25 MG CAPSULE (FP) PO PRN ×3 (06:35→14:01)
[2019-07-16] MEDS ORDERED: METHADONE HCL 40 MG DISPERSABLE TABLET ONE (06:35)
[2019-07-16] MEDS: METHADONE 40 MG, METHADONE 20 MG PO SCH (06:35)
[2019-07-16] MEDS: NICOTINE POLACRILEX 4 MG GUM BUC PRN ×4 (06:37→21:23)
[2019-07-16] MEDS ORDERED: PT OWN MED DRAWER 7, Y5N ONE (08:35)
[2019-07-16] MEDS: PANTOPRAZOLE 20 MG TABLET (FP) PO SCH (10:15)
[2019-07-16] MEDS: TOLNAFTATE 1% CREAM 15 GM TUBE TP SCH ×2 (10:15→21:23)
[2019-07-16] MEDS: PARoxetine HCL 10 MG TABLET PO SCH (10:15)
[2019-07-16] MEDS: PRENATAL VITAMINS W/ FOLIC ACID TABLET (FP) PO SCH (10:15)
[2019-07-16] MEDS: NICOTINE 21 MG/24 HOURS TOPICAL PATCH TD SCH (10:15)
[2019-07-16] MEDS: THIAMINE HCL 100 MG TABLET (FP) PO SCH (21:22)
[2019-07-16] MEDS: SUVOREXANT 10 MG TABLET PO PRN (21:23)
[2019-07-17] MEDS ORDERED: METHADONE HCL 10 MG TABLET ONE (06:47)
[2019-07-17] MEDS ORDERED: METHADONE HCL 40 MG DISPERSABLE TABLET ONE (06:47)
[2019-07-17] MEDS: METHADONE 40 MG, METHADONE 20 MG PO SCH (06:48)
[2019-07-17] MEDS: NICOTINE POLACRILEX 4 MG GUM BUC PRN ×2 (06:49→10:18)
[2019-07-17] MEDS: hydrOXYzine PAMOATE 25 MG CAPSULE (FP) PO PRN ×3 (06:49→18:35)
[2019-07-17] MEDS: PANTOPRAZOLE 20 MG TABLET (FP) PO SCH (10:17)
[2019-07-17] MEDS: PARoxetine HCL 10 MG TABLET PO SCH (10:17)
[2019-07-17] MEDS: NICOTINE 21 MG/24 HOURS TOPICAL PATCH TD SCH (10:17)
[2019-07-17] MEDS: PRENATAL VITAMINS W/ FOLIC ACID TABLET (FP) PO SCH (10:18)
[2019-07-17] MEDS: TOLNAFTATE 1% CREAM 15 GM TUBE TP SCH ×2 (10:19→21:21)
[2019-07-17] MEDS: THIAMINE HCL 100 MG TABLET (FP) PO SCH (21:19)
[2019-07-17] MEDS: SUVOREXANT 10 MG TABLET PO PRN (21:20)
[2019-07-18] MEDS ORDERED: METHADONE HCL 10 MG TABLET ONE (03:21)
[2019-07-18] MEDS ORDERED: METHADONE HCL 40 MG DISPERSABLE TABLET ONE (03:21)
[2019-07-18] MEDS: METHADONE 40 MG, METHADONE 20 MG PO SCH (06:28)
[2019-07-18] MEDS: NICOTINE POLACRILEX 4 MG GUM BUC PRN ×4 (06:29→18:12)
[2019-07-18] MEDS: hydrOXYzine PAMOATE 25 MG CAPSULE (FP) PO PRN ×3 (06:29→18:13)
[2019-07-18] MEDS: COLLOIDAL OATMEAL 1 BAR EACH TP PRN (06:30)
[2019-07-18] MEDS ORDERED: PT OWN MED DRAWER 7, Y5N ONE (08:51)
[2019-07-18] MEDS: PARoxetine HCL 10 MG TABLET PO SCH (10:13)
[2019-07-18] MEDS: TOLNAFTATE 1% CREAM 15 GM TUBE TP SCH ×2 (10:13→21:21)
[2019-07-18] MEDS: PANTOPRAZOLE 20 MG TABLET (FP) PO SCH (10:13)
[2019-07-18] MEDS: NICOTINE 21 MG/24 HOURS TOPICAL PATCH TD SCH (10:14)
[2019-07-18] MEDS: PRENATAL VITAMINS W/ FOLIC ACID TABLET (FP) PO SCH (10:14)
--- NOTE | 2019-07-18 15:40 | PN ---
[facility] Progress Note Note: Psychiatric nurse practitioner note: Belsomra 10mg renewed X3 days. Verbal consent given.
[2019-07-18] MEDS: SUVOREXANT 10 MG TABLET PO PRN (21:19)
[2019-07-18] MEDS: THIAMINE HCL 100 MG TABLET (FP) PO SCH (21:19)
[2019-07-19] MEDS ORDERED: METHADONE HCL 10 MG TABLET ONE (06:22)
[2019-07-19] MEDS ORDERED: METHADONE HCL 40 MG DISPERSABLE TABLET ONE (06:22)
[2019-07-19] MEDS: METHADONE 40 MG, METHADONE 20 MG PO SCH (06:34)
[2019-07-19] MEDS: NICOTINE POLACRILEX 4 MG GUM BUC PRN ×3 (06:34→21:38)
[2019-07-19] MEDS: hydrOXYzine PAMOATE 25 MG CAPSULE (FP) PO PRN ×3 (06:34→21:38)
[2019-07-19] MEDS: PANTOPRAZOLE 20 MG TABLET (FP) PO SCH (10:19)
[2019-07-19] MEDS: PARoxetine HCL 10 MG TABLET PO SCH (10:19)
[2019-07-19] MEDS: TOLNAFTATE 1% CREAM 15 GM TUBE TP SCH ×2 (10:19→21:37)
[2019-07-19] MEDS: NICOTINE 21 MG/24 HOURS TOPICAL PATCH TD SCH (10:19)
[2019-07-19] MEDS: PRENATAL VITAMINS W/ FOLIC ACID TABLET (FP) PO SCH (10:19)
[2019-07-19] MEDS: THIAMINE HCL 100 MG TABLET (FP) PO SCH (21:36)
[2019-07-19] MEDS: SUVOREXANT 10 MG TABLET PO PRN (21:36)
[2019-07-20] MEDS ORDERED: METHADONE HCL 40 MG DISPERSABLE TABLET ONE (06:19)
[2019-07-20] MEDS ORDERED: METHADONE HCL 10 MG TABLET ONE (06:19)
[2019-07-20] MEDS: METHADONE 40 MG, METHADONE 20 MG PO SCH (06:24)
[2019-07-20] MEDS: hydrOXYzine PAMOATE 25 MG CAPSULE (FP) PO PRN ×4 (06:25→21:53)
[2019-07-20] MEDS: NICOTINE POLACRILEX 4 MG GUM BUC PRN ×4 (06:25→17:05)
[2019-07-20] MEDS ORDERED: PT OWN MED DRAWER 7, Y5N ONE (08:52)
[2019-07-20] MEDS: CALCIUM CARBONATE 650 MG TABLET PO PRN (10:13)
[2019-07-20] MEDS: TOLNAFTATE 1% CREAM 15 GM TUBE TP SCH ×2 (10:14→21:53)
[2019-07-20] MEDS: NICOTINE 21 MG/24 HOURS TOPICAL PATCH TD SCH (10:14)
[2019-07-20] MEDS: PARoxetine HCL 10 MG TABLET PO SCH (10:14)
[2019-07-20] MEDS: PRENATAL VITAMINS W/ FOLIC ACID TABLET (FP) PO SCH (10:14)
[2019-07-20] MEDS: PANTOPRAZOLE 20 MG TABLET (FP) PO SCH (10:14)
[2019-07-20] MEDS: THIAMINE HCL 100 MG TABLET (FP) PO SCH (21:50)
[2019-07-20] MEDS: SUVOREXANT 10 MG TABLET PO PRN (21:52)
[2019-07-21] MEDS ORDERED: METHADONE HCL 40 MG DISPERSABLE TABLET ONE (06:04)
[2019-07-21] MEDS ORDERED: METHADONE HCL 10 MG TABLET ONE (06:04)
[2019-07-21] MEDS: IBUPROFEN 400 MG TABLET (FP) PO PRN (06:38)
[2019-07-21] MEDS: METHADONE 40 MG, METHADONE 20 MG PO SCH (06:38)
[2019-07-21] MEDS: CALCIUM CARBONATE 650 MG TABLET PO PRN (10:41)
[2019-07-21] MEDS: PANTOPRAZOLE 20 MG TABLET (FP) PO SCH (10:41)
[2019-07-21] MEDS: PARoxetine HCL 10 MG TABLET PO SCH (10:41)
[2019-07-21] MEDS: NICOTINE 21 MG/24 HOURS TOPICAL PATCH TD SCH (10:41)
[2019-07-21] MEDS: PRENATAL VITAMINS W/ FOLIC ACID TABLET (FP) PO SCH (10:41)
[2019-07-21] MEDS: TOLNAFTATE 1% CREAM 15 GM TUBE TP SCH ×2 (10:42→21:40)
[2019-07-21] MEDS: NICOTINE POLACRILEX 4 MG GUM BUC PRN ×3 (10:43→21:38)
[2019-07-21] MEDS: hydrOXYzine PAMOATE 25 MG CAPSULE (FP) PO PRN ×3 (10:43→23:44)
--- NOTE | 2019-07-21 18:35 | PN ---
S Progress Note Note: call to evaluate patient after unwitnessed fall on the [address] alert,oriented x 3 stated i am fine no injury noted no complaint no head injury dx unwitnessed fall treatment initiate fall protocol 1 er evaluation patient refused,signed refusal, close monitoring t98,bp 120/76,p64,r18
--- NOTE | 2019-07-21 19:20 | PN ---
[facility] Progress Note Note: Psychiatric nurse practitioner degreasing solution reclaimer note: Belsomra 10mg HS ordered X3 days.
[2019-07-21] MEDS: THIAMINE HCL 100 MG TABLET (FP) PO SCH (21:37)
[2019-07-21] MEDS: SUVOREXANT 10 MG TABLET PO PRN (21:38)
[2019-07-21] MEDS ORDERED: PT OWN MED DRAWER 7, Y5N ONE (21:42)
[2019-07-22] MEDS ORDERED: METHADONE HCL 10 MG TABLET ONE (06:35)
[2019-07-22] MEDS ORDERED: METHADONE HCL 40 MG DISPERSABLE TABLET ONE (06:35)
[2019-07-22] MEDS: METHADONE 40 MG, METHADONE 20 MG PO SCH (06:41)
[2019-07-22] MEDS: hydrOXYzine PAMOATE 25 MG CAPSULE (FP) PO PRN ×3 (06:43→19:08)
[2019-07-22] MEDS: NICOTINE POLACRILEX 4 MG GUM BUC PRN ×4 (06:43→19:07)
[2019-07-22] MEDS: NICOTINE 21 MG/24 HOURS TOPICAL PATCH TD SCH (09:26)
[2019-07-22] MEDS: TOLNAFTATE 1% CREAM 15 GM TUBE TP SCH ×2 (09:27→21:31)
[2019-07-22] MEDS: PARoxetine HCL 10 MG TABLET PO SCH (09:27)
[2019-07-22] MEDS: PANTOPRAZOLE 20 MG TABLET (FP) PO SCH (09:27)
[2019-07-22] MEDS: PRENATAL VITAMINS W/ FOLIC ACID TABLET (FP) PO SCH (09:27)
--- NOTE | 2019-07-22 12:48 | PN ---
[facility] Progress Note Note: Laboratory Tests 06/27/19 06/29/19 07/01/19 19:58 07:55 08:16 WBC 5.3 RBC 4.58 Hgb 12.7 Hct 39.7 MCV 86.7 MCH 27.8 MCHC 32.0 RDW 18.4 H Plt Count 245 MPV 8.8 Absolute Neuts (auto) 2.6 Neutrophils % 48.9 Lymphocytes % 32.7 Monocytes % 9.9 Eosinophils % 7.9 H Basophils % 0.6 Nucleated RBC % 0 Sodium Potassium Chloride Carbon Dioxide Anion Gap BUN Creatinine Est GFR (CKD-EPI)AfAm Est GFR (CKD-EPI)NonAf Random Glucose Calcium Total Bilirubin AST ALT Alkaline Phosphatase Total Protein Albumin POC Urine HCG, Qual Negative HIV 1&2 Antibody Screen Negative HIV P24 Antigen Negative 07/01/19 08:16 WBC RBC Hgb Hct MCV MCH MCHC RDW Plt Count MPV Absolute Neuts (auto) Neutrophils % Lymphocytes % Monocytes % Eosinophils % Basophils % Nucleated RBC % Sodium 136 Potassium 4.4 Chloride 100 Carbon Dioxide 31 Anion Gap 5 L BUN 15.3 Creatinine 0.7 Est GFR (CKD-EPI)AfAm 126.49 Est GFR (CKD-EPI)NonAf 109.14 Random Glucose 107 H Calcium 9.3 Total Bilirubin 0.4 AST 25 ALT 42 Alkaline Phosphatase 86 Total Protein 7.3 Albumin 3.4 POC Urine HCG, Qual HIV 1&2 Antibody Screen HIV P24 Antigen Vital Signs Temperature 98.4 F 07/22/19 09:25 Pulse Rate 85 07/22/19 09:25 Respiratory Rate 18 07/22/19 09:25 Blood Pressure 125/87 07/22/19 09:25 O2 Sat by Pulse Oximetry (%) Patient evaluated after sustaining fall yesterday 07/21/19. Patient states she slipped but is fine and denies pain to extremities. PE: alert and oriented x 3 skin warm and dry gi nt, nd ext full rom, amb ad cruz no swelling a/p: s/p fall patient stable continue to monitor clinically
[2019-07-22] MEDS: THIAMINE HCL 100 MG TABLET (FP) PO SCH (21:31)
[2019-07-22] MEDS: SUVOREXANT 10 MG TABLET PO PRN (21:33)
[2019-07-23] MEDS ORDERED: METHADONE HCL 10 MG TABLET ONE (06:32)
[2019-07-23] MEDS ORDERED: METHADONE HCL 40 MG DISPERSABLE TABLET ONE (06:33)
[2019-07-23] MEDS: METHADONE 40 MG, METHADONE 20 MG PO SCH (06:38)
[2019-07-23] MEDS: IBUPROFEN 400 MG TABLET (FP) PO PRN (06:38)
[2019-07-23] MEDS: NICOTINE POLACRILEX 4 MG GUM BUC PRN ×4 (06:39→21:40)
[2019-07-23] MEDS: hydrOXYzine PAMOATE 25 MG CAPSULE (FP) PO PRN ×3 (06:39→21:38)
[2019-07-23] MEDS: NICOTINE 21 MG/24 HOURS TOPICAL PATCH TD SCH (10:21)
[2019-07-23] MEDS: PRENATAL VITAMINS W/ FOLIC ACID TABLET (FP) PO SCH (10:22)
[2019-07-23] MEDS: PARoxetine HCL 10 MG TABLET PO SCH (10:22)
[2019-07-23] MEDS: PANTOPRAZOLE 20 MG TABLET (FP) PO SCH (10:22)
[2019-07-23] MEDS: CALCIUM CARBONATE 650 MG TABLET PO PRN (10:22)
[2019-07-23] MEDS: TOLNAFTATE 1% CREAM 15 GM TUBE TP SCH ×2 (10:22→21:38)
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
--- NOTE | 2019-07-23 15:04 | PN ---
[facility] Progress Note Note: Patient is scheduled for discharge tomorrow. Script for 30 days supply of Paxil 10 mg/day will be electronically transmitted to [facility] at [phone], [place] [phone]
[2019-07-23] MEDS ORDERED: PT OWN MED DRAWER 7, Y5N ONE (19:52)
[2019-07-23] MEDS: THIAMINE HCL 100 MG TABLET (FP) PO SCH (21:38)
[2019-07-23] MEDS ORDERED: SUVOREXANT 10 MG TABLET PO PRN (22:00)
[2019-07-24] MEDS ORDERED: PT OWN MED DRAWER 7, Y5N ONE (01:28)
[2019-07-24] MEDS ORDERED: METHADONE HCL 10 MG TABLET PO SCH (06:00)
[2019-07-24] MEDS ORDERED: METHADONE 40 MG, METHADONE 20 MG PO SCH (06:00)
[2019-07-24] MEDS ORDERED: METHADONE HCL 10 MG TABLET ONE (06:22)
[2019-07-24] MEDS ORDERED: METHADONE HCL 40 MG DISPERSABLE TABLET ONE (06:22)
[2019-07-24] MEDS: hydrOXYzine PAMOATE 25 MG CAPSULE (FP) PO PRN (06:46)
[2019-07-24] MEDS: NICOTINE POLACRILEX 4 MG GUM BUC PRN (06:46)
[2019-07-24 07:41] VITALS: BP 119/77; PULSE 72; TEMP 97.7
[2019-07-24] MEDS: PANTOPRAZOLE 20 MG TABLET (FP) PO SCH (09:27)
[2019-07-24] MEDS: PARoxetine HCL 10 MG TABLET PO SCH (09:27)
[2019-07-24] MEDS: NICOTINE 21 MG/24 HOURS TOPICAL PATCH TD SCH (09:27)
[2019-07-24] MEDS: TOLNAFTATE 1% CREAM 15 GM TUBE TP SCH (09:27)
[2019-07-24] MEDS: PRENATAL VITAMINS W/ FOLIC ACID TABLET (FP) PO SCH (09:27)
== END 2019-07-24 09:40 | disposition home or self-care (01) | DRG 772 ==
LOC: YASAS 16:40 → Y3E 21:51
PROVIDERS: ADMIT Neuromusculoskeletal Medicine & OMM; ATTEND Neuromusculoskeletal Medicine & OMM
PROC: HZ42ZZZ Group Counseling for Substance Abuse Treatment, Cognitive-Behavioral (ICD-10-PCS; principal; 2019-06-27)
DX: F10.20 Alcohol dependence, uncomplicated (principal); F11.20 Opioid dependence, uncomplicated; F14.20 Cocaine dependence, uncomplicated; Z86.19 Personal history of other infectious and parasitic diseases
CPT/HCPCS: 36415; 80053; 81025; 85025; 87389; 93005; 93010